=== PATIENT | male | born 1940 | race Caucasian/White ===

== ENCOUNTER 2017-03-10 16:27 | Observation (INO) ==
[2017-03-10] MEDS ORDERED: NITROGLYCERIN 2% OINT 1 INCH/GM PACK TOP STA (16:53)
[2017-03-10] MEDS ORDERED: NITROGLYCERIN SL 0.4 MG TABLET SL PRN ×2 (16:53→21:07)
[2017-03-10] MEDS ORDERED: METOPROLOL TARTRATE 5 MG/5 ML VIAL IV STA (16:53)
[2017-03-10] MEDS ORDERED: ENOXAPARIN 100 MG/ML SYRINGE SUBCUT STA (16:53)
--- NOTE | 2017-03-10 16:57 | EKG Report ---
Stationary ECG Study [facility] ER Test Date: 03/10/2017 4:45:16 PM Pat Name: NELIDA KYLE Department: Room: Gender: M Admitting Clerk: : 1940 Requested by: Wilmar Kennedy Order Number: [id number] Reading MD: ELIDA PRATER Intervals [place] Rate: 66 P: 37 TX: 169 QRS: 56 QRSD: 109 T: 48 QT: 456 QTc: 470 Interpretive Statements SINUS RHYTHM Electronically Signed On 03-11-17 16:58:15 CDT by ELIDA PRATER [email or web address]
[2017-03-10] MEDS ORDERED: ENOXAPARIN 100 MG/ML SYRINGE SUBCUT ONE (17:19)
[2017-03-10] MEDS ORDERED: METOPROLOL TARTRATE 5 MG/5 ML VIAL IV ONE (17:19)
[2017-03-10] MEDS ORDERED: NITROGLYCERIN 2% OINT 1 INCH/GM PACK TOP ONE (17:19)
[2017-03-10 17:27] LABS: Basophils % 0.3 % (0.0-0.8); Eosinophils # 0.3 10*3/uL (0.0-0.87); Eosinophils % 3.9 % (0.00-10.9); Hematocrit 39.8 VOL% (42.0-52.0); Hemoglobin 13.3 GM/DL (14.0-18.0); Immature Granulocytes % 0.5 %; Immature Granulocytes Absolute 0.03 #; Lymphocytes # 1.7 10*3/uL (1.4-4.0); Lymphocytes % 26.5 % (21.2-54.2); Mean Corpuscular HGB Conc 33.4 GM/DL (32-36); Mean Corpuscular Hemoglobin 33 PG (27-34); Mean Corpuscular Volume 97.5 FL (87-102); Mean Platelet Volume 9.6 FL (9.6-12.0); Monocytes # 0.6 10*3/uL (0.11-0.8); Monocytes % 9.1 % (1.7-12.7); Neutrophils # 3.8 10*3/uL (1.4-7.4); Neutrophils % 59.7 % (38.7-73.9); Platelet Count 185 T/CUMM (130-400); Red Blood Count 4.08 MC/CUMM (3.8-5.5); Red Cell Distribution Width 11.8 % (9.3-17.3); White Blood Count 6.3 T/CUMM (4-12)
--- NOTE | 2017-03-10 17:36 | EKG Report ---
Stationary ECG Study [facility] ER Test Date: 03/10/2017 5:35:03 PM Pat Name: NELIDA KYLE Department: Room: 122 Gender: M Box Attacher: : 1940 Requested by: Wilmar Kennedy Order Number: [id number] Reading MD: ELIDA PRATER Intervals [place] Rate: 65 P: 33 NE: 169 QRS: 8 QRSD: 109 T: 22 QT: 460 QTc: 471 Interpretive Statements SINUS RHYTHM Electronically Signed On 03-11-17 16:59:17 CDT by ELIDA PRATER [email or web address]
[2017-03-10 17:41] LABS: Calcium 8.8 MG/DL (8.5-10.1); Magnesium 2.1 MG/DL (1.8-2.4); Osmolality,Calculated 280.4 MOS/KG (273-304); Potassium 4.2 MMOL/L (3.5-5.1)
--- NOTE | 2017-03-10 17:42 | XRay Report ---
XR chest 1V portable Indication: Chest pain. Chest one view: Comparison 02/11/2017. Increased reticular prominence of the lungs noted diffusely, with increased definition of the right minor fissure, all of which is suggestive of mild pulmonary edema. Central pulmonary arteries are slightly more pronounced as well. Heart size remains within normal limits. No focal infiltrate identified. Impression: Mild fluid overload. PROCEDURE INTERPRETED AT [facility] DEPARTMENT OF RADIOLOGY Final Report Signed by: Devante Lyles M.D.
[2017-03-10] MEDS ORDERED: ALUM/MAG/SIMETH/LIDO VISC 1:1 30 ML BOTTLE PO STA (18:08)
[2017-03-10] MEDS ORDERED: ALUM/MAG/SIMETH/LIDO VISC 1:1 30 ML BOTTLE PO ONE (18:11)
[2017-03-10] MEDS ORDERED: MORPHINE 2 MG/1 ML SYRINGE ONE (19:20)
[2017-03-10] MEDS ORDERED: ONDANSETRON 4 MG/2 ML VIAL ONE (19:20)
[2017-03-10] MEDS ORDERED: MORPHINE 2 MG/1 ML SYRINGE IV STA (19:20)
[2017-03-10] MEDS ORDERED: ONDANSETRON 4 MG/2 ML VIAL IV STA (19:20)
[2017-03-10] MEDS ORDERED: MORPHINE 2 MG/1 ML SYRINGE IV PRN (19:23)
[2017-03-10] MEDS ORDERED: POTASSIUM CHLORIDE 20 MEQ TABLET PO PRN (19:23)
[2017-03-10] MEDS ORDERED: MAGNESIUM SULF RIDER 4 GM in PREMIX 1 EACH IV PRN (19:23)
[2017-03-10] MEDS ORDERED: MAGNESIUM SULF RIDER 2 GM in PREMIX 1 EACH IV PRN (19:23)
--- NOTE | 2017-03-10 19:23 | Emergency Department Note ---
Praful Ayon Brittany, am scribing for, and in the presence of, Cristian Smith MD 16:56. Luis Ayon Doug C, MD, personally performed the services described in this documentation, ascribed by Shantell Basilio in my presence, and it is both accurate and complete 922 . Arrival - Arrival Chief Complaint: Chest Pain Stated Complaint: chest pains and pain down both arms ED Nursing Triage Note: chest pain, +nausea,+sob,-diaphoresis, numerous stents and mi's in past, +dizziness Mode of Arrival: Wheelchair Limitations: No Limitations Source: Patient, RN Notes Reviewed Time Seen by Provider: 03/10/17 16:53 - History of Present Illness HPI Narrative: Patient 76-year-old white male presents emergency room complaining of substernal chest pain. Patient states this been basically going off and on all day. Patient states hitting this morning and lasted about 30 minutes before it subsided. He states the pain was a dull ache across his chest and radiated to both arms. He had no nausea, vomiting or diaphoresis. Patient states pain hit him again after lunch and it was as severe or more so and persistent. He took 2 nitroglycerin and had almost complete relief but his pain never subsided. Patient complains of persistent substernal chest pain and is still radiating to both arms. He feels a little short of breath now but still has no nausea, vomiting or diaphoresis. He does have a history of coronary artery disease and has had multiple stents in the past. Patient states Dr. Espinosa is his sap basis administrator but recently saw sap basis administrator in [place], a Dr. Ryder, who did not see any need for any further intervention at this time. Patient states on a scale of 1-10 his present pain is a 5. Onset (ago): hour(s) (9) Consistency: intermittent Severity: severe Severity scale (1-10): 9 (9/10 at worst, 5/10 as of now) Quality: other ("hard" per pt) Allergies/Adverse Reactions: Allergies Allergy/AdvReac Type Severity Reaction Status Date / Time No Known Allergies Allergy Verified 03/10/17 16:48 Home Medications: Home Medications Medication Instructions Recorded Confirmed Type Aspirin [Ecotrin] 81 mg PO QAM 10/02/15 03/10/17 History Lisinopril 2.5 mg PO QAM 10/02/15 03/10/17 History Sertraline [Zoloft] 50 mg PO PC SUPPER 10/02/15 03/10/17 History Metoprolol Tartrate Tab [Lopressor 12.5 mg PO BID #30 tablet 10/12/15 03/10/17 Rx Tab] Nitroglycerin Sl Tab [Nitrostat] 0.4 mg SL Q5M PRN #25 tablet 10/12/15 03/10/17 Rx Ranolazine [Ranexa] 1,000 mg PO BID #60 tablet 01/06/16 03/10/17 Rx Cetirizine Tab [ZyrTEC Tab] 10 mg PO PC SUPPER 03/03/16 03/10/17 History Pantoprazole Tab [Protonix Tab] 40 mg PO BID 03/03/16 03/10/17 History Isosorbide Mononitrate [Imdur] 60 mg PO QAM 07/17/16 03/10/17 History Atorvastatin [Lipitor] 80 mg PO BEDTIME 01/06/17 03/10/17 History Clopidogrel [Plavix] 75 mg PO QAM 03/10/17 03/10/17 History Simethicone Chew Tab [Mylanta Gas 125 mg PO PC PRN 03/10/17 03/10/17 History Max Str] Review of System - Review of System 12 point system: reviewed and no additional remarkable complaints except as stated - Review of System Constitutional: Present: weakness. Absent: chills, diaphoresis, fever Eyes: Absent: vision change Head/Ears/Nose/Throat: Absent: nasal drainage, sore throat Respiratory: Absent: respiratory distress Cardiovascular: Present: chest pain Gastrointestinal: Present: nausea. Absent: abdominal pain, vomiting, diarrhea, constipation Genitourinary male: Absent: urgency, dysuria, frequency Musculoskeletal: Present: arm pain (bilateral). Absent: back pain, leg pain, neck pain Skin: Absent: rash Neurological: Present: vertigo Psychiatric: Absent: anxiety, depression Hematological/Lymphatic: Absent: easy bleeding, easy bruising Medical,Surgical,& Family Hx - Medical History Cardio: History of: CAD (3.0 x 18 mm Xience exp. In left circumflex and 2.25 x 28 Xience exp 06/13), Hypertension, [place], Cardiovascular Problems Psychological: History of: Depression Neurology: No history of: Brain Aneurysm, Seizures HEENT: History of: Ear Problem (Hearing Aids), Eye Problem (Glasses), Dental Problems (Partial upper Dentures), HEENT Problems (vertigo) Endocrine: No history of: Diabetes Mellitus (IDDM), Diabetes Mellitus (NIDDM), Thyroid Disorder Respiratory: No history of: Obstructive Sleep Apnea Genitourinary: History of: Kidney Stones Gastrointestinal: History of: GERD Musculoskeletal: History of: Musculoskeletal Problems (arthritis) No history of: Amputation - Surgical History Cardiac Surgeries: Sugical HX of: Cardiac Catheterization (stents in 2017) Thoracic Surgeries: Patient denies;: Lobectomy Neurologic Surgeries: Patient denies: Brain Aneurysm, Neurologic Surgery HEENT Surgeries: Patient denies: Eye Surgery, Thyroid Surgery, Tonsilectomy & Adenoidectomy Abdominal Surgeries: Surgical HX of: Abdominal Surgery, Cholecystectomy, Colonoscopy, EGD, Hernia Repair Patient denies: Appendectomy Reproductive Surgeries: Patient denies;: Genitourinary Surgery Orthopedic Surgeries: Patient denies;: Implanted Devices, Orthopedic Surgery, Spinal Surgery, Total Hip Replacement, Total Knee Replacement - Family History Family History: Reports;: Family Cancer (BROTHERS AND SISTER), Family Diabetes ( MOTHER), Family Heart Disease (BROTHERS AND SISTER) - Social History Smoking Status: Former smoker Exam Vital Signs: Vital Signs Temperature 98.2 F 03/10/17 17:39 Pulse Rate 67 03/10/17 17:39 Respiratory Rate 18 03/10/17 17:39 Blood Pressure 134/76 03/10/17 17:39 O2 Sat by Pulse Oximetry 98 03/10/17 16:43 - General General appearance: alert, in no apparent distress - Head Head exam: Present: atraumatic, normocephalic, normal inspection - Eye Eye exam: Present: normal appearance, PERRL, EOMI - ENT ENT exam: Present: normal exam, normal oropharynx, mucous membranes moist - Neck Neck exam: Present: normal inspection, full ROM, trachea midline - Chest Chest inspection: Present: normal inspection, symmetric chest wall rise. Absent : tenderness (no chest wall tenderness on exam) - Respiratory Respiratory exam: Present: normal lung sounds bilaterally. Absent: rales, rhonchi, wheezes - Cardiovascular Cardiovascular exam: Present: regular rate, normal rhythm, normal heart sounds. Absent: murmur, rubs, gallop - Abdominal Exam Abdominal exam: Present: soft, normal bowel sounds. Absent: distention, tenderness - Extremities Exam Extremities exam: Present: normal inspection - Back Exam Back exam: Present: normal inspection - Neurological Exam Neurological exam: Present: alert, oriented X3, CN II-XII intact. Absent: motor sensory deficit - Psychiatric Psychiatric exam: Present: normal affect - Skin Skin exam: Present: warm, dry Course Course Narrative: Patient's pain continued to wax and wane here in the emergency room. He got some relief with nitroglycerin but he seemed to get more relief with a GI cocktail. His pain however returned. His repeat EKG showed no changes from the initial EKG and his cardiac isoenzymes were negative. Because of his history I thought best for him to be admitted for observation and serial cardiac isoenzymes. I discussed the patient's clinical presentation, laboratory and radiographic findings with Dr. Pelaez and he asked the patient be admitted to a telemetry bed. Results - Labs CBC & BMP: 03/10/17 16:24 03/10/17 16:24 Lab Results: I have reviewed the patients labs Labs: Laboratory Tests 03/10/17 16:24 WBC 6.3 RBC 4.08 Hgb 13.3 L Hct 39.8 L MCV 97.5 MCH 33 MCHC 33.4 RDW 11.8 Plt Count 185 MPV 9.6 Neut % (Auto) 59.7 Lymph % (Auto) 26.5 Mcleod % (Auto) 9.1 Eos % (Auto) 3.9 Baso % (Auto) 0.3 Neut # (Auto) 3.8 Lymph # (Auto) 1.7 Mcleod # (Auto) 0.6 Eos # (Auto) 0.3 Baso # (Auto) 0.0 Immature Gran % 0.5 Nucleated RBC % 0.0 Immature Gran # 0.03 Nucleated RBCs # 0.00 Laboratory Tests 03/10/17 03/10/17 16:24 16:24 Sodium 140 Potassium 4.2 Chloride 106 Carbon Dioxide 28 Anion Gap 10.2 BUN 17 Creatinine 1.20 GFR Calculation 69 BUN/Creatinine Ratio 14.00 Glucose 99 Calculated Osmolality 280.4 Calcium 8.8 Magnesium 2.1 Troponin I < 0.015 - Diagnostic Findings Procedure: Chest x-ray: report reviewed by me (Mild fluid overload.) Disposition Clinical Impression: Chest pain, History of coronary artery disease Case discussed with: patient Disposition: Still a Patient Condition: Guarded Time of Disposition: 19:22
[2017-03-10] MEDS ORDERED: SIMETHICONE CHEW 125 MG TABLET PO PRN (21:07)
[2017-03-10] MEDS ORDERED: ATORVASTATIN 80 MG TABLET PO SCH (21:07)
[2017-03-10] MEDS: PANTOPRAZOLE 40 MG TABLET PO SCH (22:33)
[2017-03-10] MEDS: RANOLAZINE 500 MG TABLET PO SCH (22:33)
[2017-03-10] MEDS: ONDANSETRON 4 MG/2 ML VIAL IV PRN (22:33)
[2017-03-10] MEDS: METOPROLOL TARTRATE 25 MG TABLET PO SCH (22:39)
[2017-03-10] MEDS: SODIUM CHLORIDE 0.45% 1,000 ML IV SCH (22:40)
--- NOTE | 2017-03-10 23:03 | EKG Report ---
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
[2017-03-11] MEDS ORDERED: MORPHINE 2 MG/1 ML SYRINGE IV PRN (00:30)
[2017-03-11] MEDS ORDERED: NITROGLYCERIN DRIP 50 MG/250 ML BOTTLE IV SCH (00:30)
[2017-03-11] MEDS ORDERED: NITROGLYCERIN DRIP 50 MG/250 ML BOTTLE IV ONE (00:39)
[2017-03-11] MEDS: ONDANSETRON 4 MG/2 ML VIAL IV PRN ×3 (03:01→15:04)
[2017-03-11 05:13] LABS: Albumin 3.6 G/DL (3.4-5.0); Bilirubin,Direct 0.2 MG/DL (0.0-0.20); Bilirubin,Indirect 0.9 MG/DL (0.0-1.0); Bilirubin,Total 1.1 MG/DL (0.2-1.0); Total Protein 5.5 G/DL (6.4-8.3)
[2017-03-11 05:16] LABS: Calcium 8.7 MG/DL (8.5-10.1); Osmolality,Calculated 281.3 MOS/KG (273-304)
--- NOTE | 2017-03-11 06:56 | EKG Report ---
Stationary ECG Study [facility] Test Date: 03/11/2017 1:46:58 AM Pat Name: NELIDA KYLE Department: Room: 122 Gender: M Plush Dresser: : 1940 Requested by: Wilmar Kennedy Order Number: [id number] Jessica MD: ELIDA PRATER Intervals [place] Rate: 57 P: 36 NE: 141 QRS: 62 QRSD: 109 T: 31 QT: 485 QTc: 480 Interpretive Statements SINUS RHYTHM Electronically Signed On 03-11-17 17:02:05 CDT by ELIDA PRATER [id number]
--- NOTE | 2017-03-11 08:22 | Cardiology History & Physical ---
<Mercedez Prado - Last Filed: 03/11/17 08:00> Assessment and Plan - Time spent with patient Time spent with patient: Greater than 30 minutes (1) Chest pain Status: Acute Assessment and plan: Patient has atypical symptoms of chest pain. The syncope worsened with laying down and better with sitting up. However patient also has long-standing history of CAD. We will order stress test this morning to rule out worsening of underlying coronary artery disease. Current Visit: Yes (2) History of coronary artery disease Status: Chronic Assessment and plan: Patient's most recent heart catheterization was January 2017. At that time, he had successful percutaneous intervention of the left anterior descending coronary artery with drug-eluting stents in the proximal and mid vessel. Current Visit: Yes (3) Dyslipidemia Status: Chronic Assessment and plan: Continue current plan of care with lipid lowering agent. I will order a lipid panel. Current Visit: No (4) GERD (gastroesophageal reflux disease) Status: Chronic Assessment and plan: Continue PPI twice daily. Current Visit: No (5) Hypertension Status: Chronic Assessment and plan: This is currently well controlled. Will continue current plan of care. Current Visit: Yes (6) Erosive esophagitis Status: Acute Current Visit: Yes History of Present Illness Chief complaint: Chest pain History of present illness: Concert Singer: Dr. Rivas PCP: Yamileth Singer Cardiology H&P note: Mr. Galo is a 76 year old male with known history of coronary artery disease , routinely followed by Dr. Rivas. Patient presented to the ER yesterday with complaints of chest pain. Patient has cardiac risk factors significant for known history of coronary artery disease, dyslipidemia, hypertension, advanced age, family history of coronary artery disease, sedentary lifestyle and former smoker (quit in 1968). Patient has past medical history of erosive esophagitis , GERD and myocardial infarction. Patient was hospitalized January 2017 and underwent cardiac catheterization January 06, 2017. He is status post successful percutaneous intervention of the left anterior descending coronary artery with drug-eluting stents in the proximal and mid vessel. Circumflex stent was widely patent at that time. Right coronary artery was chronically occluded. He had an echocardiogram January 2017 which revealed and ejection fraction of 55-60%. Dr. Ryder, a radio control crane operator in [facility] reviewed his cardiac catheterization films last week. He tells me that he received a phone call from Dr. Ryder Saturday. He told him at that time that he did not see any need for further intervention at this point and time. Patient was in his usual state of health until yesterday morning when he began feeling dizzy and nauseated while getting ready for Saturday school. While at Saturday school, this continued to worsen. He then decided that it was best to go home and not attend oriental orthodox service. After he arrived home, he tells me that he fixed himself a salad. Apparently 30 minutes later he began experiencing left sided chest pain while sitting in his chair. He tells me that this radiated to his left lower rib cage. He describes this as an tightening/ squeezing pain. This was not worsened with exertion. He tells me that laying down made it worse and sitting up made this better. This is associated with slight shortness of breath and nausea. He denies diaphoresis and vomiting. He took 2 nitroglycerin, this helped his pain. However it was not completely resolved. He then took 2 Gas-X. This also seemed to help his pain, but did not completely resolve it. A couple hours later, his chest pain became more severe and began to radiate down both arms. At that time, he and his decided it was best to come to the ER for further evaluation. Upon arrival to the ER he continued to experience chest pain. He tells me that it was ongoing until he received morphine. Of note, patient tells me that him and his worked in the yard strenuously Saturday and Saturday. Upon exam, his left chest was slightly tender to palpation. However, he tells me that this was not the same pain that he was experiencing. Patient was seen and examined in the CCU. He tells me that he is now chest pain -free. His EKG does not reveal any acute changes from previous EKGs. Troponin has been negative 3. Patient tells me that he has been extremely compliant with his dual antiplatelet therapy. Echocardiogram was ordered in the emergency room. This will be reviewed. I will further discuss this with Dr. alford. Further plan and addendum to follow. Home Medications Medication Instructions Recorded Confirmed Type Aspirin [Ecotrin] 81 mg PO QAM 10/02/15 03/10/17 History Lisinopril 2.5 mg PO QAM 10/02/15 03/10/17 History Sertraline [Zoloft] 50 mg PO PC SUPPER 10/02/15 03/10/17 History Metoprolol Tartrate Tab [Lopressor 12.5 mg PO BID #30 tablet 10/12/15 03/10/17 Rx Tab] Nitroglycerin Sl Tab [Nitrostat] 0.4 mg SL Q5M PRN #25 tablet 10/12/15 03/10/17 Rx Ranolazine [Ranexa] 1,000 mg PO BID #60 tablet 01/06/16 03/10/17 Rx Cetirizine Tab [ZyrTEC Tab] 10 mg PO PC SUPPER 03/03/16 03/10/17 History Pantoprazole Tab [Protonix Tab] 40 mg PO BID 03/03/16 03/10/17 History Isosorbide Mononitrate [Imdur] 60 mg PO QAM 07/17/16 03/10/17 History Atorvastatin [Lipitor] 80 mg PO BEDTIME 01/06/17 03/10/17 History Clopidogrel [Plavix] 75 mg PO QAM 03/10/17 03/10/17 History Simethicone Chew Tab [Mylanta Gas 125 mg PO PC PRN 03/10/17 03/10/17 History Max Str] Allergies Allergy/AdvReac Type Severity Reaction Status Date / Time No Known Allergies Allergy Verified 03/10/17 16:48 - Constitutional Constitutional: Present: as per HPI, fatigue. Absent: chills, fever(s), frequent falls, headache(s), weakness, weight gain, weight loss - Cardiovascular Cardiovascular: Present: as per HPI, chest pain at rest, dyspnea, radiating jaw , neck or arm pain, lightheadedness. Absent: claudication, diaphoresis, edema, orthopnea, palpitations, PND - Respiratory Respiratory: Present: dyspnea. Absent: cough, wheezing, snoring, pain on inspiration, change in phlegm color - Gastrointestinal Gastrointestinal: Present: dyspepsia, heartburn, nausea. Absent: abdominal pain , bloating, change in bowel habits, coffee ground emesis, constipation, cramping , diarrhea, hematemesis, hematochezia, loose stools, melena, vomiting - Neurological Neurological: Present: dizziness. Absent: abnormal gait, abnormal speech, frequent falls, headache(s), numbness, paresthesias, syncope - Hematologic/Lymphatic Hematologic/Lymphatic: Absent: easy bleeding, easy bruising, lymphadenopathy Medical,Surgical,& Family Hx - Medical History Cardio: History of: CAD, Hypertension, [place], Cardiovascular Problems Psychological: History of: Depression HEENT: History of: Ear Problem (Hearing Aids), Eye Problem (Glasses), Dental Problems (Partial upper Dentures), HEENT Problems (vertigo) Endocrine: History of: Dyslipidemia No history of: Diabetes Mellitus (NIDDM), Thyroid Disorder Respiratory: No history of: Obstructive Sleep Apnea Genitourinary: History of: Kidney Stones Gastrointestinal: History of: GERD, GI Problems (Erosive esophagitis) Musculoskeletal: History of: Musculoskeletal Problems (arthritis) - Surgical History Cardiac Surgeries: Sugical HX of: Cardiac Catheterization (stents in 2017) Patient Denies: Cardiac Surgery, Internal Defibrillator, Vascular Access Devices Thoracic Surgeries: Patient denies;: Lobectomy Abdominal Surgeries: Surgical HX of: Abdominal Surgery, Cholecystectomy, Colonoscopy, EGD, Hernia Repair - Family History Family History: Reports;: Family Cancer (BROTHERS AND SISTER), Family Diabetes ( MOTHER), Family Heart Disease (BROTHERS AND SISTER) - Social History Smoking Status: Former smoker Frequency of Alcohol Use: None Type of Drug Use: None Cardiology Physical Exam - Constitutional Vitals: Vital Signs Temp Pulse Resp BP Pulse Ox 98.1 F 58 L 17 100/60 96 03/11/17 04:00 03/11/17 06:45 03/11/17 06:45 03/11/17 06:45 03/11/17 06:45 Intake and Output 03/10/17 03/11/17 03/11/17 22:59 06:59 14:59 Intake Total 220 / 220 Output Total 400 / 400 Balance -180 / -180 Intake: IV Nitroglycerin Drip 50 mg/ 250 ml50 mg In 250 ml @ 5 MCG/MIN 1.5 mls/hr IV TITRATE ROMARIO Rx#: [id number] Oral 220 / 220 Output: Urine 400 / 400 Other: Voiding Method Urinal # Voids 0 Weight 192 lb 192 lb General appearance: normal weight, no acute distress - Head Head exam: Present: normal inspection, normocephalic, atraumatic - Neck Neck exam: Present: normal inspection. Absent: lymphadenopathy, tenderness, thyromegaly - Respiratory Respiratory exam: Present: clear to auscultation bilaterally, chest wall tenderness. Absent: accessory muscle use, rales, rhonchi, stridor, wheezes - Cardiovascular Cardiovascular exam: Present: regular rate and rhythm. Absent: bradycardia, carotid bruit, gallop, rubs, systolic murmur - GI/Abdominal GI/Abdominal exam: Present: normal bowel sounds, soft. Absent: distended, firm , tenderness - Extremities Exam Extremities exam: Present: normal inspection, normal capillary refill, other ( Normal upper and lower extremity pulses.). Absent: calf tenderness, edema - Neurological Exam Neurological exam: Present: alert, oriented X3 - Psychiatric Psychiatric exam: Present: normal affect, normal mood. Absent: agitated, anxious, depressed - Skin Skin exam: Present: normal color, warm, dry. Absent: cyanosis, diaphoretic, erythema Result/EKG - Labs CBC & BMP: 03/10/17 16:24 03/11/17 03:52 Lab Results: I have reviewed the past 24 hour labs Labs: Laboratory Results - last 24 hr 03/10/17 03/10/17 03/11/17 20:49 22:23 03:52 Sodium Potassium Chloride Carbon Dioxide Anion Gap BUN Creatinine GFR Calculation BUN/Creatinine Ratio Glucose Calculated Osmolality Calcium Total Bilirubin Direct Bilirubin Indirect Bilirubin AST ALT Alkaline Phosphatase Troponin I < 0.015 < 0.015 < 0.015 Total Protein Albumin Lipase 03/11/17 03/11/17 03:52 03:52 Sodium 141 Potassium 4.0 Chloride 106 Carbon Dioxide 26 Anion Gap 13.0 BUN 16 Creatinine 0.80 GFR Calculation 103 BUN/Creatinine Ratio 20.00 Glucose 92 Calculated Osmolality 281.3 Calcium 8.7 Total Bilirubin 1.10 H Direct Bilirubin 0.20 Indirect Bilirubin 0.9 AST 14 ALT 15 L Alkaline Phosphatase 67 Troponin I Total Protein 5.5 L Albumin 3.6 Lipase 113.0 Quality Measures - Stroke Symptom Onset Unknown: No <Irvin Melissa - Last Filed: 03/11/17 09:06> History of Present Illness History of present illness: Cardiology addendum Patient examined and chart reviewed. Status post proximal and distal LAD stent January 06, [address] Espinosa. The circumflex stent site was widely patent and the right coronary is chronically occluded. Ejection fraction 55-6% by recent echo. Patient had recurrent chest pain. This is most likely reflux disease. He has known chronic GE reflux and a history of erosive esophagitis he does not practice good reflux precautions and is not that careful about what he eats. Troponin negative 3. EKG shows sinus rhythm ST-T wave changes only exam is normal. No murmur or gallop and no chest wall tenderness to palpation. Impression Atypical chest pain Plan Exercise cardiac stress test today. Home if negative Routine GE with precautions reviewed Cardiology Physical Exam - Constitutional Vitals: Vital Signs Temp Pulse Resp BP Pulse Ox 98.1 F 58 L 17 100/60 96 03/11/17 04:00 03/11/17 06:45 03/11/17 06:45 03/11/17 06:45 03/11/17 06:45 Intake and Output 03/10/17 03/11/17 03/11/17 23:59 07:59 15:59 Intake Total 220 / 220 Output Total 400 / 400 Balance -180 / -180 Intake: IV Nitroglycerin Drip 50 mg/ 250 ml50 mg In 250 ml @ 5 MCG/MIN 1.5 mls/hr IV TITRATE ROMARIO Rx#: [id number] Oral 220 / 220 Output: Urine 400 / 400 Other: Voiding Method Urinal # Voids 0 Weight 87.09 kg 87.09 kg Patient Weight 03/11/17 23:59 Weight 87.09 kg Result/EKG - Labs CBC & BMP: 03/10/17 16:24 03/11/17 03:52 Labs: Laboratory Results - last 24 hr 03/10/17 03/10/17 03/11/17 20:49 22:23 03:52 Sodium Potassium Chloride Carbon Dioxide Anion Gap BUN Creatinine GFR Calculation BUN/Creatinine Ratio Glucose Calculated Osmolality Calcium Total Bilirubin Direct Bilirubin Indirect Bilirubin AST ALT Alkaline Phosphatase Troponin I < 0.015 < 0.015 < 0.015 B-Natriuretic Peptide Total Protein Albumin Lipase 03/11/17 03/11/17 03/11/17 03:52 03:52 03:52 Sodium 141 Potassium 4.0 Chloride 106 Carbon Dioxide 26 Anion Gap 13.0 BUN 16 Creatinine 0.80 GFR Calculation 103 BUN/Creatinine Ratio 20.00 Glucose 92 Calculated Osmolality 281.3 Calcium 8.7 Total Bilirubin 1.10 H Direct Bilirubin 0.20 Indirect Bilirubin 0.9 AST 14 ALT 15 L Alkaline Phosphatase 67 Troponin I B-Natriuretic Peptide 88 Total Protein 5.5 L Albumin 3.6 Lipase 113.0
[2017-03-11] MEDS ORDERED: ASPIRIN EC 81 MG TABLET PO SCH (09:00)
[2017-03-11] MEDS ORDERED: LISINOPRIL 5 MG TABLET PO SCH (09:00)
[2017-03-11] MEDS ORDERED: ISOSORBIDE MONONITRATE 60 MG TABLET PO SCH (09:00)
[2017-03-11] MEDS ORDERED: PANTOPRAZOLE 40 MG TABLET PO SCH (09:00)
[2017-03-11] MEDS ORDERED: CLOPIDOGREL 75 MG TABLET PO SCH (09:00)
[2017-03-11 09:04] LABS: Risk Ratio 2.84; VLDL CHOLESTEROL 27.6 MG/DL
[2017-03-11] MEDS: SODIUM CHLORIDE 0.45% 1,000 ML IV SCH (10:16)
[2017-03-11] MEDS: METOPROLOL TARTRATE 25 MG TABLET PO SCH (12:35)
[2017-03-11] MEDS: PANTOPRAZOLE 40 MG TABLET PO SCH (12:37)
[2017-03-11] MEDS: RANOLAZINE 500 MG TABLET PO SCH (12:37)
[2017-03-11] MEDS ORDERED: REGADENOSON 0.4 MG/5 ML SYRINGE IV ONE (13:53)
--- NOTE | 2017-03-11 15:46 | ECHO Report ---
Griffin Galo Exam Date: 03/11/2017 07:28 Referring Physician: Technologist: Ronel Salter RDCS Age: 76 Ht (in): 69 Wt (lb): 192 Gender: M Exam Location: [facility] Echo Indications: Chest pain, unspecified, CAD with previous stent, Dyslipidemia, Essential (primary) hypertension, GERD, Dizziness and giddiness BP: 99 / 58 HR: 61 Rhythm: Sinus Technical Quality: Fair IMPRESSIONS Left ventricular ejection fraction is estimated at 65 %. Grade I/IV diastolic dysfunction (abnormal relaxation filling pattern), normal to mildly elevated filling pressures. The right ventricle is normal in size and function. Normal right atrial size. The left atrium is mildly enlarged. Morphologically normal mitral valve. Trace mitral valve regurgitation. Aortic valve sclerosis. No aortic valve regurgitation. Mild tricuspid valve regurgitation. PAP 35-40 mmHG. No pulmonary valve regurgitation. Normal pericardium without effusion. Normal ascending aorta dimension. MEASUREMENTS (Male / Female) Normal Values 2D ECHO LV Diastolic Diameter PLAX 3.7 cm 4.2 - 5.9 / 3.9 - 5.3 cm LV Systolic Diameter PLAX 1.9 cm LV Fractional Shortening PLAX 49.7 % IVS Diastolic Thickness 1.0 cm 0.6 - 1.0 / 0.6 - 0.9 cm LVPW Diastolic Thickness 1.1 cm 0.6 - 1.0 / 0.6 - 0.9 cm RV Internal Dim ED PLAX 2.7 cm Aortic Root Diameter 3.3 cm LA Systolic Diameter LX 3.9 cm 3.0 - 4.0 / 2.7 - 3.8 cm DOPPLER TR Peak Velocity 258.0 cm/s TR Peak Gradient 26.6 mmHg FINDINGS Left Ventricle Grade I/IV diastolic dysfunction (abnormal relaxation filling pattern), normal to mildly elevated filling pressures. Normal left ventricular cavity size. Normal left ventricular wall thickness. Left ventricular ejection fraction is estimated at 65 %. Right Ventricle The right ventricle is normal in size and function. Right Atrium Normal right atrial size. Left Atrium The left atrium is mildly enlarged. Mitral Valve Morphologically normal mitral valve. Trace mitral valve regurgitation. Aortic Valve Aortic valve sclerosis. No aortic valve regurgitation. Tricuspid Valve Morphologically normal tricuspid valve. Mild tricuspid valve regurgitation. PAP 35-40 mmHG. Pulmonic Valve Pulmonic valve not well visualized. No pulmonary valve regurgitation. Pericardium Normal pericardium without effusion. Aorta Normal ascending aorta dimension. Pierre Belén (Electronically Signed) Final Date: 11 March 2017 15:45
--- NOTE | 2017-03-11 16:39 | Discharge Summary ---
<Leonarda Freire - Last Filed: 03/11/17 16:24> Hospital Course - Hospital Course Hospital Course: CODING SPECIALIST HOME HEALTH: DR. REYNA PCP: GIULIANO SINGER Mr. Galo is a 76 year old male with known history of coronary artery disease , routinely followed by Dr. Reyna. Patient presented to the ER yesterday with complaints of chest pain. Symptoms of chest pain were atypical. Mr. Galo had 3 sets of negative troponins. Echocardiogram today revealed EF 65%, grade 1 4 diastolic dysfunction, trace MR, mild TR. He underwent nuclear stress testing today which was low risk for ischemia. This was postponed until this afternoon due to nausea earlier in the day. He also had an episode of nausea following stress testing for which he was given Zofran. He reports he is now feeling much better and is ready to go home. His blood pressure has been well controlled. He has been normal sinus rhythm with rates in the 70s. Patient was hospitalized January 2017 and underwent cardiac catheterization January 06, 2017. He is status post successful percutaneous intervention of the left anterior descending coronary artery with drug-eluting stents in the proximal and mid vessel. Circumflex stent was widely patent at that time. Right coronary artery was chronically occluded. Dr. Ryder, a non emergency services ambulance driver in [facility] reviewed his cardiac catheterization films last week. He tells me that he received a phone call from Dr. Ryder Saturday. He told him at that time that he did not see any need for further intervention at this point and time. Reflux precautions were discussed with the patient. He has previously seen Dr. Liu and we will make him a follow-up appointment to see him within the next 3 -4 weeks. He will be discharged home today and we will also get him back into see Dr. Reyna within the next 2-3 weeks. - Time spent with patient Time with patient DS: Less than 30 minutes Diagnosis - Discharge Diagnosis (1) Atypical chest pain Status: Acute (2) Erosive esophagitis Status: Chronic (3) History of coronary artery disease Status: Chronic (4) Hypertension Status: Chronic (5) Dyslipidemia Status: Chronic (6) GERD (gastroesophageal reflux disease) Status: Chronic Specialty Discharge - Follow Up or Referrals Follow up with: Irvin Liu MD [Physician] - (Follow up with Dr. Liu within 3-4 weeks, or next available appointment. ) Lela Reyna DO [Physician] - 2 Weeks (Follow up with Dr. Reyna within 2-3 weeks. ) Discharge Plan - Discharge Data Disposition: Disch To Home/Self Care Condition at Discharge: Stable Discharge Diet: heart healthy Activity: resume usual activities as tolerated Hygiene: no restrictions Weight Bearing at Discharge: full weight bearing Contact your physician if you experience:: fever over 101, Difficulty voiding, Redness or swelling, Nausea/Vomiting, Shortness of breath, Bleeding, pain uncontrolled by pain medications - Discharge Medications Continue Sertraline [Zoloft] 50 mg PO PC SUPPER Lisinopril 2.5 mg PO QAM Aspirin [Ecotrin] 81 mg PO QAM Metoprolol Tartrate Tab [Lopressor Tab] 12.5 mg PO BID #30 tablet Nitroglycerin Sl Tab [Nitrostat] 0.4 mg SL Q5M PRN #25 tablet PRN Reason: Chest Pain Ranolazine [Ranexa] 1,000 mg PO BID #60 tablet Pantoprazole Tab [Protonix Tab] 40 mg PO BID Cetirizine Tab [ZyrTEC Tab] 10 mg PO PC SUPPER Isosorbide Mononitrate [Imdur] 60 mg PO QAM Atorvastatin [Lipitor] 80 mg PO BEDTIME Simethicone Chew Tab [Mylanta Gas Max Str] 125 mg PO PC PRN PRN Reason: Indigestion Clopidogrel [Plavix] 75 mg PO QAM - Follow Up or Referral Follow Up: Lela Reyna DO [Physician] - 2 Weeks (Follow up with Dr. Reyna within 2-3 weeks. ) Irvin Liu MD [Physician] - (Follow up with Dr. Liu within 3-4 weeks, or next available appointment. ) - Forms/Instructions Instructions: Coronary Artery Disease (DC), Chest Pain (DC), Chronic Hypertension (DC), Corrosive Esophagitis (DC) Exam - Constitutional Vitals: Period Temp Pulse Resp BP Sys/Seymour Pulse Ox Last 24 Hr 97.8 F-98.5 F 55-79 11-28 93-139/54-86 92-100 Exam: General appearance: Pleasant and cooperative. No acute distress. - Head Head exam: Present: normal inspection, normocephalic, atraumatic. Absent: hematoma, laceration - Eye Eye exam: Present: EOMI. Absent: conjunctival injection, nystagmus, periorbital swelling, scleral icterus, laceration to eyelids Pupils: Present: PERRL. Absent: constricted, dilated, fixed, irregular, unequal - ENT ENT exam: Present: normal exam, normal external ear exam - Neck Neck exam: Present: normal inspection. Absent: lymphadenopathy, meningismus, tenderness, thyromegaly - Respiratory Respiratory exam: Present: clear to auscultation bilaterally, chest wall tenderness. Absent: accessory muscle use, chest wall tenderness - Cardiovascular Cardiovascular exam: Present: regular rate and rhythm. Absent: carotid bruit, gallop, JVD, rubs, murmur - GI/Abdominal GI/Abdominal exam: Present: normal bowel sounds, soft. Absent: distended, firm , guarding, hernia, mass, tenderness, rebound. - Extremities Exam Extremities exam: Present: normal inspection, normal capillary refill. Upper extremity pulses 2+. Lower extremity pulses 2+. Absent: calf tenderness, edema - Back Exam Back exam: Present: normal inspection. Absent: muscle spasm, vertebral tenderness - Neurological Exam Neurological exam: Present: alert, oriented X3, grossly intact without resting or essential tremor - Psychiatric Psychiatric exam: Present: normal affect, normal mood - Skin Skin exam: Present: normal color, warm, dry, intact. Absent: cyanosis, diaphoretic, rash, urticaria Discharge Results Procedures and tests throughout hospitalization: Pending Orders 03/11/17 00:50 MRSA Surveillence, Inf Control Routine 03/11/17 08:47 NM calli perf SPECT rest or str Routine Labs on day of discharge: Labs from last 24 hours 03/11/17 03/11/17 03/11/17 03:52 03:52 03:52 Sodium Potassium Chloride Carbon Dioxide Anion Gap BUN Creatinine GFR Calculation BUN/Creatinine Ratio Glucose Calculated Osmolality Calcium Total Bilirubin 1.10 H Direct Bilirubin 0.20 Indirect Bilirubin 0.9 AST 14 ALT 15 L Alkaline Phosphatase 67 Troponin I B-Natriuretic Peptide 88 Total Protein 5.5 L Albumin 3.6 Triglycerides 138 Cholesterol 165 LDL Cholesterol 93.0 VLDL Cholesterol 27.6 HDL Cholesterol 58 Heart Disease Risk Ratio 2.84 Lipase 113.0 03/11/17 03/11/17 03/10/17 03:52 03:52 22:23 Sodium 141 Potassium 4.0 Chloride 106 Carbon Dioxide 26 Anion Gap 13.0 BUN 16 Creatinine 0.80 GFR Calculation 103 BUN/Creatinine Ratio 20.00 Glucose 92 Calculated Osmolality 281.3 Calcium 8.7 Total Bilirubin Direct Bilirubin Indirect Bilirubin AST ALT Alkaline Phosphatase Troponin I < 0.015 < 0.015 B-Natriuretic Peptide Total Protein Albumin Triglycerides Cholesterol LDL Cholesterol VLDL Cholesterol HDL Cholesterol Heart Disease Risk Ratio Lipase 03/10/17 20:49 Sodium Potassium Chloride Carbon Dioxide Anion Gap BUN Creatinine GFR Calculation BUN/Creatinine Ratio Glucose Calculated Osmolality Calcium Total Bilirubin Direct Bilirubin Indirect Bilirubin AST ALT Alkaline Phosphatase Troponin I < 0.015 B-Natriuretic Peptide Total Protein Albumin Triglycerides Cholesterol LDL Cholesterol VLDL Cholesterol HDL Cholesterol Heart Disease Risk Ratio Lipase DS: Provider Date of admission: 03/10/17 19:23 Primary care physician: Brenna Singer Attending physician on admission: Lela Reyna DO Discharging clinician: PADMINI Roth Expected date of discharge: 03/11/17 <Irvin Melissa - Last Filed: 03/11/17 17:20> Hospital Course - Hospital Course Hospital Course: Cardiology addendum. Status post proximal mid LAD stents January 06, 2017. At that time circumflex stent was patent and the right groin was occluded with good [id number] collaterals Atypical chest pain. Normal Lexiscan cardiac stress test today. Ejection fraction 62%. This is a low risk scan. Noncardiac chest pain. Patient reassured. Home today Office follow-up with Dr. Espinosa as scheduled Routine GE reflux precautions reviewed again.
[2017-03-11 17:13] VITALS: BP 121/76
[2017-03-11] MEDS ORDERED: SERTRALINE 50 MG TABLET PO SCH (18:00)
[2017-03-11] MEDS ORDERED: CETIRIZINE 10 MG TABLET PO SCH (18:00)
--- NOTE | 2017-03-11 18:38 | Nuclear Medicine Report ---
PROCEDURE: LEXISCAN CARDIOLITE GATED SPECT. REFERRING: Braulio Rivas DO INITIAL IMPRESSION: 1. CAD, STATUS POST LAD STENT 01/06/2017. 2. ATYPICAL CHEST PAIN. 3. ABNORMAL EKG. FINAL IMPRESSION: NORMAL LEXISCAN CARDIOLITE GATED SPECT. I. DESCRIPTION OF PROCEDURE: The patient received 10.0 mCi of Technetium-99m Cardiolite IV and res t images were obtained in the routine manner 20 minutes later. The patient then walked for 3 minute s on a low-level treadmill and received 0.4 mg of IV Lexiscan followed by 30.0 mCi of Technetium-99m Cardiolite IV and pharmacologic stress imaging was obtained in the routine manner 20 minutes later. Serial electrocardiograms were performed. The initial blood pressure was 130/76 and it was 146/76 immediately post Lexiscan. The peak heart rate was 93. II. RESULTS: The patient had no chest pain or arrhythmias and tolerated Lexiscan walk well. The r esting EKG demonstrates normal sinus rhythm with right bundle-branch blood and ST-T-wave changes. W ith pharmacologic stress, no diagnostic EKG changes occurred. No arrhythmias. Tomographic imaging demonstrates homogeneous uptake of radioisotope in all segments. There is no ev idence for ischemia or scar. Gated SPECT imaging demonstrates normal wall motion and thickening in all segments. The calculated ejection fraction is 62%. III. FINAL IMPRESSION: 1. CLINICALLY AND ELECTROGRAPHICALLY NEGATIVE. 2. SCINTIGRAPHICALLY NORMAL PERFUSION STUDY. IV. DISPOSITION: The patient status post proximal and distal LAD stents 01/06/2017. He remains w ell revascularized. He had no chest pain or diagnostic EKG changes, and tomographic imaging is norm al. In addition, ventricular function is well preserved with ejection fraction 62%. This is a low- risk scan. Continued medical therapy and risk factor modification recommended. Procedure performed and interpreted at [facility] Department of Radiology. CC: Braulio Rivas DO
== END 2017-03-11 17:20 | disposition home or self-care (01) ==
LOC: N.EDINP 16:27 → N.ED 16:27 → N.TELES 19:48 → N.CC 03-11 00:35
PROVIDERS: ADMIT Internal Medicine Cardiovascular Disease; ATTEND Internal Medicine Cardiovascular Disease

== ENCOUNTER 2017-08-26 10:53 | Observation (INO) ==
--- NOTE | 2017-08-26 11:16 | EKG Report ---
Stationary ECG Study [facility] ER Test Date: 08/26/2017 11:02:24 AM Pat Name: NELIDA KYLE Department: Room: Gender: M Barn Boss: : 1940 Requested by: Nehemiah Davison Order Number: [id number] Reading MD: MEGAN JOSHI Intervals [place] Rate: 56 P: 56 DC: 172 QRS: 77 QRSD: 105 T: 63 QT: 473 QTc: 465 Interpretive Statements SINUS RHYTHM POSSIBLE RIGHT VENTRICULAR CONDUCTION DELAY/INCOMPLETE RBBB Electronically Signed On 08-30-17 06:31:08 CDT by MEGAN JOSHI [email or web address]
[2017-08-26] MEDS ORDERED: ENOXAPARIN 100 MG/ML SYRINGE SUBCUT STA (11:38)
[2017-08-26 12:01] LABS: Basophils % 0.5 % (0.0-0.8); Eosinophils # 0.2 10*3/uL (0.0-0.87); Eosinophils % 2.4 % (0.00-10.9); Hematocrit 40.5 VOL% (42.0-52.0); Hemoglobin 13.8 GM/DL (14.0-18.0); Immature Granulocytes % 0.2 %; Immature Granulocytes Absolute 0.01 #; Lymphocytes # 1.6 10*3/uL (1.4-4.0); Lymphocytes % 24.6 % (21.2-54.2); Mean Corpuscular HGB Conc 34.1 GM/DL (32-36); Mean Corpuscular Hemoglobin 32 PG (27-34); Mean Platelet Volume 10.1 FL (9.6-12.0); Monocytes # 0.5 10*3/uL (0.11-0.8); Monocytes % 7.5 % (1.7-12.7); Neutrophils # 4.2 10*3/uL (1.4-7.4); Neutrophils % 64.8 % (38.7-73.9); Platelet Count 181 T/CUMM (130-400); Red Blood Count 4.31 MC/CUMM (3.8-5.5); Red Cell Distribution Width 11.9 % (9.3-17.3); White Blood Count 6.5 T/CUMM (4-12)
[2017-08-26] MEDS ORDERED: ONDANSETRON 4 MG/2 ML VIAL ONE (12:04)
[2017-08-26] MEDS ORDERED: ENOXAPARIN 80 MG/0.8 ML SYRINGE SUBCUT ONE (12:04)
[2017-08-26] MEDS ORDERED: NITROGLYCERIN SL 0.4 MG TABLET SL ONE (12:04)
[2017-08-26] MEDS ORDERED: NITROGLYCERIN SL 0.4 MG TABLET SL STA (12:08)
[2017-08-26 12:09] LABS: INR 1.1; PT Patient Result 11.1 SECS
[2017-08-26] MEDS ORDERED: ONDANSETRON 4 MG/2 ML VIAL IV STA (12:13)
--- NOTE | 2017-08-26 12:28 | XRay Report ---
History: Chest pain Date: 08/26/2017 Study: Chest x-ray PA and lateral Comparison exam: March 10, 2017 The cardiac silhouette is not enlarged. There is no mediastinal mass. The pulmonary vasculature is not engorged. The lungs and pleural spaces are clear. There is osteopenia and mild thoracic spondylosis. Impression: No acute cardiopulmonary process compared to the previous study PROCEDURE INTERPRETED AT [facility] DEPARTMENT OF RADIOLOGY Final Report Signed by: Dr. Kelly Andrews
[2017-08-26 12:43] LABS: Albumin 4.2 G/DL (3.4-5.0); Bilirubin,Total 0.7 MG/DL (0.2-1.0); Calcium 9.4 MG/DL (8.5-10.1); Magnesium 2.3 MG/DL (1.8-2.4); Osmolality,Calculated 281.3 MOS/KG (273-304); Potassium 4.3 MMOL/L (3.5-5.1); Total Protein 6.3 G/DL (6.4-8.3)
[2017-08-26] MEDS ORDERED: MAGNESIUM SULF RIDER 2 GM in PREMIX 1 EACH IV PRN ×3 (13:13→15:28)
[2017-08-26] MEDS ORDERED: MAGNESIUM SULF RIDER 4 GM in PREMIX 1 EACH IV PRN (13:13)
--- NOTE | 2017-08-26 13:16 | Emergency Department Note ---
Varsha Ayon Rolonda, am scribing for, and in the presence of, Nehemiah Todd MD 11:43. Peyton Ayon Phillip K, MD, personally performed the services described in this documentation, ascribed by Boy Maddox in my presence, and it is both accurate and complete 316 . Arrival - Arrival Chief Complaint: Chest Pain Stated Complaint: chest pain nausea left arm pain ED Nursing Triage Note: reports having some chest pain off and on for two weeks but got worse yesterday and he had to leave cheondoism. reports has some nausea and sob with the pain yesterday. Mode of Arrival: Ambulatory Limitations: No Limitations Source: Patient, Old Records Reviewed, RN Notes Reviewed Time Seen by Provider: 08/26/17 11:22 - History of Present Illness HPI Narrative: Pt is a 77 y/o male who presents to the ED for further evaluation of CP with an onset of weeks. Pt has a PMHx of [place], Stents, Heart cath, HTN and CAD.Pt states that the pain has been intermittent for weeks. He states that the pain comes with exertion and at rest as well. he states that the CP is mainly on the left side and radiates to the left arm. He states that the pain is a "heart ache". He confirms that he took ASA today and 1 NTG yesterday with relief. Pt states that he is on Plavix and the last heart cath was in January. No other complaint /pain in ED. Onset (ago): week(s) Consistency: constant Severity: moderate Severity scale (1-10): 5 Allergies/Adverse Reactions: Allergies Allergy/AdvReac Type Severity Reaction Status Date / Time No Known Allergies Allergy Verified 03/10/17 16:48 Home Medications: Home Medications Medication Instructions Recorded Confirmed Type Aspirin [Ecotrin] 81 mg PO QAM 10/02/15 03/10/17 History Lisinopril 2.5 mg PO QAM 10/02/15 03/10/17 History Sertraline [Zoloft] 50 mg PO PC SUPPER 10/02/15 03/10/17 History Metoprolol Tartrate Tab [Lopressor 12.5 mg PO BID #30 tablet 10/12/15 03/10/17 Rx Tab] Nitroglycerin Sl Tab [Nitrostat] 0.4 mg SL Q5M PRN #25 tablet 10/12/15 03/10/17 Rx Ranolazine [Ranexa] 1,000 mg PO BID #60 tablet 01/06/16 03/10/17 Rx Cetirizine Tab [ZyrTEC Tab] 10 mg PO PC SUPPER 03/03/16 03/10/17 History Pantoprazole Tab [Protonix Tab] 40 mg PO BID 03/03/16 03/10/17 History Isosorbide Mononitrate [Imdur] 60 mg PO QAM 07/17/16 03/10/17 History Atorvastatin [Lipitor] 80 mg PO BEDTIME 01/06/17 03/10/17 History Clopidogrel [Plavix] 75 mg PO QAM 03/10/17 03/10/17 History Simethicone Chew Tab [Mylanta Gas 125 mg PO PC PRN 03/10/17 03/10/17 History Max Str] Review of System - Review of System 12 point system: reviewed and no additional remarkable complaints except as stated - Review of System Constitutional: Absent: diaphoresis Eyes: Absent: discharge Respiratory: Present: respiratory distress (SOB) Cardiovascular: Present: chest pain Gastrointestinal: Present: nausea Genitourinary male: Absent: dysuria Musculoskeletal: Present: arm pain (left ) Skin: Absent: rash Neurological: Absent: headache Psychiatric: Absent: anxiety Endocrine: Absent: cold intolerance Hematological/Lymphatic: Absent: easy bleeding Allergic/Immunologic: Absent: facial swelling Medical,Surgical,& Family Hx - Medical History Cardio: History of: CAD, Hypertension, [place], Cardiovascular Problems No history of: Aneurysm, Cardiac Dysrhythmia, Cerebrovascular Disease, Congenital Heart Disease, CHF, Pacemaker, PVD, Valvular Heart Disease Psychological: History of: Depression Neurology: No history of: Brain Aneurysm, Cerebral Hemorrhage, Cerebrovascular Accident , Cerebral Palsy, Dementia, Migraine, Multiple Sclerosis, Parkinson's Disease, Peripheral Neuropathy, Seizures, TIA, Vertigo, Neurologocal Cancer HEENT: History of: Ear Problem (Hearing Aids), Eye Problem (Glasses), Dental Problems (Partial upper Dentures), HEENT Problems (vertigo) Endocrine: History of: Dyslipidemia No history of: Diabetes Mellitus (IDDM), Diabetes Mellitus (NIDDM), Thyroid Disorder Respiratory: No history of: Obstructive Sleep Apnea Genitourinary: History of: Kidney Stones Gastrointestinal: History of: GERD, GI Problems (Erosive esophagitis) Musculoskeletal: History of: Musculoskeletal Problems (arthritis) No history of: Amputation - Surgical History Cardiac Surgeries: Sugical HX of: Cardiac Catheterization (stents in 2017) Patient Denies: Femoral-Popliteal Bypass Graft, Cardiac Surgery, Carotid Endarterectomy, Internal Defibrillator, Vascular Access Devices Thoracic Surgeries: Patient denies;: Lobectomy Neurologic Surgeries: Patient denies: Brain Aneurysm, Cerebral Hemorrhage, Neurologic Surgery HEENT Surgeries: Patient denies: Carotid Endarterectomy, Eye Surgery, Thyroid Surgery, Tonsilectomy & Adenoidectomy Abdominal Surgeries: Surgical HX of: Abdominal Surgery, Cholecystectomy, Colonoscopy, EGD, Hernia Repair Patient denies: Appendectomy, Splenectomy Reproductive Surgeries: Patient denies;: Genitourinary Surgery Orthopedic Surgeries: Patient denies;: Implanted Devices, Orthopedic Surgery, Spinal Surgery, Total Hip Replacement, Total Knee Replacement - Family History Family History: Reports;: Family Cancer (BROTHERS AND SISTER), Family Diabetes ( MOTHER), Family Heart Disease (BROTHERS AND SISTER) - Social History Smoking Status: Former smoker Exam Vital Signs: Vital Signs Temperature 97.5 F L 08/26/17 11:15 Pulse Rate 54 L 08/26/17 12:15 Respiratory Rate 20 08/26/17 12:15 Blood Pressure 123/74 08/26/17 12:15 O2 Sat by Pulse Oximetry 97 08/26/17 12:15 - General General appearance: alert, in no apparent distress - Head Head exam: Present: atraumatic, normocephalic - Eye Eye exam: Present: PERRL, EOMI - ENT ENT exam: Present: mucous membranes moist. Absent: mucous membranes dry - Neck Neck exam: Present: full ROM. Absent: tenderness - Chest Chest inspection: Present: symmetric chest wall rise. Absent: tenderness - Respiratory Respiratory exam: Present: rales (right base). Absent: normal lung sounds bilaterally - Cardiovascular Cardiovascular exam: Present: regular rate, normal rhythm, normal heart sounds. Absent: bradycardia - Abdominal Exam Abdominal exam: Present: soft, normal bowel sounds. Absent: tenderness - Extremities Exam Extremities exam: Present: full ROM. Absent: tenderness - Back Exam Back exam: Present: full ROM. Absent: tenderness - Neurological Exam Neurological exam: Present: alert, oriented X3, CN II-XII intact - Psychiatric Psychiatric exam: Present: normal affect, normal mood - Skin Skin exam: Present: warm, dry, intact, normal color. Absent: rash Course Course Narrative: Patient discussed with Dr. Knott will admit for serial isoenzymes. Patient's pain relieved with 2 nitroglycerin sublingual in the ED. Results - Labs CBC & BMP: 08/26/17 11:48 08/26/17 11:48 Lab Results: I have reviewed the patients labs Labs: Laboratory Tests 08/26/17 11:48 WBC 6.5 RBC 4.31 Hgb 13.8 L Hct 40.5 L Plt Count 181 Laboratory Tests 08/26/17 11:48 INR 1.1 PT Patient/Control Mix 11.1 Laboratory Tests 08/26/17 08/26/17 11:48 11:48 Sodium 141 Potassium 4.3 Chloride 107 Carbon Dioxide 30 GFR Calculation 97 Glucose 90 AST 16 B-Natriuretic Peptide 205 H Total Protein 6.3 L Globulin 2.1 L - EKG EKG results: interpreted by ERMD, WNL, sinus rhythm - Diagnostic Findings Procedure: Chest x-ray: report reviewed by me (No acute cardiopulmonary process compared to the previous study.) Disposition Clinical Impression: Chest pain, Possible unstable angina Case discussed with: patient Disposition: Still a Patient Condition: Guarded Additional Instructions: Admit to Dr. Knott
[2017-08-26] MEDS ORDERED: NITROGLYCERIN SL 0.4 MG TABLET SL PRN ×2 (15:07→15:23)
--- NOTE | 2017-08-26 15:16 | Cardiology History & Physical ---
<Jaki Chadwick E - Last Filed: 08/26/17 15:19> Assessment and Plan - Time spent with patient Time spent with patient: Greater than 30 minutes (1) Chest pain Status: Acute Assessment and plan: SEE PLAN OF CARE LISTED BELOW Current Visit: Yes (2) CAD (coronary artery disease) Status: Chronic Assessment and plan: SEE PLAN OF CARE LISTED BELOW Current Visit: No (3) Dyslipidemia Status: Chronic Assessment and plan: SEE PLAN OF CARE LISTED BELOW Current Visit: No (4) Hypertension Status: Chronic Assessment and plan: SEE PLAN OF CARE LISTED BELOW Current Visit: No History of Present Illness Chief complaint: Chest pain, shortness of breath, known coronary artery disease History of present illness: FERN CUTTER: DR. REYNA PCP: GIULIANO MURPHY Patient is being seen in the emergency depart Mr. Galo, 77WM, has risk factors significant for: age, known severe three- vessel CAD, hypertension, dyslipidemia. Most recent cardiac catheterization January 06, 2017 patient required PCI of distal-LAD, PCI of mid-LAD, POBA of ostium D2. (He has had numerous heart catheterizations in the past requiring interventions). Presented to the ED August 26, 2017 with complaints of worsening chest pain occurring over the past 3 weeks, specifically worse over the past several days. Located in the mid and left chest area without radiation , described as tight and squeezing lasting several minutes at a time. Associated with shortness of breath. Reports activities are bringing on the discomfort and rest relieves discomfort. Rates the discomfort as a 7 on a scale of 1-10, currently chest pain-free. Patient states that the chest discomfort he has been experiencing is similar to the same type of discomfort he had in January 2017 when he required intervention. He does describe other complaints of chest pain which are atypical in nature including discomfort when bending over at the waist and tenderness to touch in the left chest area. Cardiac biomarkers negative, EKG does not reveal acute ME (does have a prolonged QT.) At this point, continue to cycle cardiac biomarkers and EKG. He has received aspirin and a therapeutic dose of Lovenox, nitroglycerin. He has had his home medications this morning which include blood pedigree will, metoprolol and lisinopril. Will continue his lipid-lowering agent with an FLP in the morning. Will keep NPO after midnight tonight for possible cardiac catheterization in the morning. Will further discuss with Dr. Knott and await additional recommendations. IMPRESSION/PLAN: 1. CHEST PAIN - concerning for angina. Will keep NPO after midnight tonight for possible catheterization tomorrow. 2. KNOWN SEVERE THREE VESSEL CAD - has required multiple interventions in the past, most recently in January 2017. Continue dual antiplatelet therapy. NPO after midnight 3. HYPERTENSION - continue beta-blockade and GUALBERTO inhibitor 4. DYSLIPIDEMIA - fasting lipid profile tomorrow morning. Continue lipid- lowering agent tonight. Home Medications Medication Instructions Recorded Confirmed Type Aspirin [Ecotrin] 81 mg PO QAM 10/02/15 08/26/17 History Lisinopril 5 mg PO QAM 10/02/15 08/26/17 History Sertraline [Zoloft] 50 mg PO PC SUPPER 10/02/15 08/26/17 History Metoprolol Tartrate Tab [Lopressor 12.5 mg PO BID #30 tablet 10/12/15 08/26/17 Rx Tab] Nitroglycerin Sl Tab [Nitrostat] 0.4 mg SL Q5M PRN #25 tablet 10/12/15 08/26/17 Rx Cetirizine Tab [ZyrTEC Tab] 10 mg PO PC SUPPER 03/03/16 08/26/17 History Pantoprazole Tab [Protonix Tab] 40 mg PO BID 03/03/16 08/26/17 History Isosorbide Mononitrate [Imdur] 60 mg PO QAM 07/17/16 08/26/17 History Atorvastatin [Lipitor] 40 mg PO QOTHER DAY 01/06/17 08/26/17 History Clopidogrel [Plavix] 75 mg PO QAM 03/10/17 08/26/17 History Allergies Allergy/AdvReac Type Severity Reaction Status Date / Time No Known Allergies Allergy Verified 03/10/17 16:48 Review of systems: REVIEW OF SYSTEMS: - Constitutional Constitutional: Present: Fatigue. Absent: syncope, anorexia, night sweats - EENT Eyes: Absent: blurry vision, loss of vision, diplopia Ears: Absent: decreased hearing, ear pain, ear discharge - Cardiovascular Cardiovascular: Present: chest pain with exertion, dyspnea on exertion. Denies edema, palpitations. Absent: chest pain with deep breath, claudication - Respiratory Respiratory: Present: WHITE, denies cough. Absent: wheezing, hemoptysis, change in phlegm color - Gastrointestinal Gastrointestinal: Denies constipation. Absent: abdominal pain, hematemesis, hematochezia, melena, change in bowel habits, nausea - Genitourinary Genitourinary: Absent: difficulty urinating, dysuria, urinary hesitancy, flank pain - Musculoskeletal Musculoskeletal: Present: back pain Absent: joint swelling, muscle cramps, muscle weakness - Neurological Neurological: Present: normal gait without frequent falls. Absent: dizziness, hemiparesis - Psychiatric Psychiatric: Absent: anxiety, depression, difficulty concentrating - Endocrine Endocrine: Present: fatigue. Absent: cold intolerance, heat intolerance, polyuria, polyphagia, polydipsia - Hematologic/Lymphatic Hematologic/Lymphatic: Present: easy bruising. Absent: easy bleeding -Integumentary Integumentary: Absent: lesions, rashes, skin breakdown Medical,Surgical,& Family Hx - Medical History Cardio: History of: CAD, Hypertension, ME, Cardiovascular Problems No history of: Aneurysm, Cardiac Dysrhythmia, Cerebrovascular Disease, Congenital Heart Disease, CHF, Pacemaker, PVD, Valvular Heart Disease Psychological: History of: Depression Neurology: No history of: Brain Aneurysm, Cerebral Hemorrhage, Cerebrovascular Accident , Cerebral Palsy, Dementia, Migraine, Multiple Sclerosis, Parkinson's Disease, Peripheral Neuropathy, Seizures, TIA, Vertigo, Neurologocal Cancer HEENT: History of: Ear Problem (Hearing Aids), Eye Problem (Glasses), Dental Problems (Partial upper Dentures), HEENT Problems (vertigo) Endocrine: History of: Dyslipidemia No history of: Diabetes Mellitus (IDDM), Diabetes Mellitus (NIDDM), Thyroid Disorder Respiratory: No history of: Obstructive Sleep Apnea Genitourinary: History of: Kidney Stones Gastrointestinal: History of: GERD, GI Problems (Erosive esophagitis) Musculoskeletal: History of: Musculoskeletal Problems (arthritis) No history of: Amputation - Surgical History Cardiac Surgeries: Sugical HX of: Cardiac Catheterization (stents in 2017) Patient Denies: Femoral-Popliteal Bypass Graft, Cardiac Surgery, Carotid Endarterectomy, Internal Defibrillator, Vascular Access Devices Thoracic Surgeries: Patient denies;: Lobectomy Neurologic Surgeries: Patient denies: Brain Aneurysm, Cerebral Hemorrhage, Neurologic Surgery HEENT Surgeries: Patient denies: Carotid Endarterectomy, Eye Surgery, Thyroid Surgery, Tonsilectomy & Adenoidectomy Abdominal Surgeries: Surgical HX of: Abdominal Surgery, Cholecystectomy, Colonoscopy, EGD, Hernia Repair Patient denies: Appendectomy, Splenectomy Reproductive Surgeries: Patient denies;: Genitourinary Surgery Orthopedic Surgeries: Patient denies;: Implanted Devices, Orthopedic Surgery, Spinal Surgery, Total Hip Replacement, Total Knee Replacement - Family History Family History: Reports;: Family Cancer (BROTHERS AND SISTER), Family Diabetes ( MOTHER), Family Heart Disease (BROTHERS AND SISTER) - Social History Smoking Status: Former smoker Have you smoked in the last 12 months: No Type of Drug Use: None Marital Status: Lives With:: Spouse Functional capacity: independent ambulation Cardiology Physical Exam - Constitutional Vitals: Vital Signs Temp Pulse Resp BP Pulse Ox 97.5 F L 53 L 20 124/73 98 08/26/17 11:15 08/26/17 13:30 08/26/17 13:30 08/26/17 13:30 08/26/17 13:30 Intake and Output 08/25/17 08/26/17 08/26/17 23:59 07:59 15:59 Other: Weight 84.822 kg Patient Weight 08/26/17 23:59 Weight 84.822 kg Exam: General: [Appears well with no apparent distress.] [Pleasant and cooperative. ] [Appears comfortable.] HEENT: [PERRL, normocephalic, atraumatic. Mucous membranes moist. No jaundice noted. Conjunctiva moist and clear, sclerae anicteric] Neck: No JVD/HJR, no thyromegaly or lymphadenopathy noted. No carotid bruit appreciated Cardiac: [Regular rate and rhythm.] [No obvious murmur rub or gallop.] Multiple varicosities of bilateral lower extremity Lungs: [Clear to auscultation without accessory muscle use to assist the respiratory pattern.] Not requiring oxygen Abdomen: Soft, bowel sounds normoactive. Nontender and nondistended. No abdominal bruit or thrill noted. No masses noted. Musculoskeletal: No fluid collection. Decreased range of motion is noted. Extremities: No clubbing, cyanosis noted. [ No edema noted.] Upper extremity pulses 2+. Lower extremity pulses 2+. Capillary refill less than 3 seconds. Skin: No unusual lesions or rashes. No skin breakdown appreciated. Neuro: Awake, alert and oriented 3. Moves all extremities well without hemiparesis or paralysis. No essential tremor is appreciated. Result/EKG - Labs CBC & BMP: 08/26/17 11:48 08/26/17 11:48 Lab Results: I have reviewed the past 24 hour labs Labs: Laboratory Results - last 24 hr 08/26/17 08/26/17 08/26/17 11:48 11:48 11:48 WBC RBC Hgb Hct MCV MCH MCHC RDW Plt Count MPV Neut % (Auto) Lymph % (Auto) [place] % (Auto) Eos % (Auto) Baso % (Auto) Neut # (Auto) Lymph # (Auto) [place] # (Auto) Eos # (Auto) Baso # (Auto) Immature Gran % Nucleated RBC % Immature Gran # Nucleated RBCs # Immature Plt Fraction INR 1.1 PT Patient/Control Mix 11.1 Sodium 141 Potassium 4.3 Chloride 107 Carbon Dioxide 30 Anion Gap 8.3 BUN 15 Creatinine 0.90 GFR Calculation 97 BUN/Creatinine Ratio 16.00 Glucose 90 Calculated Osmolality 281.3 Calcium 9.4 Magnesium 2.3 Total Bilirubin 0.70 AST 16 ALT 20 Alkaline Phosphatase 87 Troponin I < 0.015 B-Natriuretic Peptide Total Protein 6.3 L Albumin 4.2 Globulin 2.1 L Albumin/Globulin Ratio 2.0 08/26/17 08/26/17 11:48 11:48 WBC 6.5 RBC 4.31 Hgb 13.8 L Hct 40.5 L MCV 94.0 MCH 32 MCHC 34.1 RDW 11.9 Plt Count 181 MPV 10.1 Neut % (Auto) 64.8 Lymph % (Auto) 24.6 [place] % (Auto) 7.5 Eos % (Auto) 2.4 Baso % (Auto) 0.5 Neut # (Auto) 4.2 Lymph # (Auto) 1.6 [place] # (Auto) 0.5 Eos # (Auto) 0.2 Baso # (Auto) 0.0 Immature Gran % 0.2 Nucleated RBC % 0.0 Immature Gran # 0.01 Nucleated RBCs # 0.00 Immature Plt Fraction 0.0 INR PT Patient/Control Mix Sodium Potassium Chloride Carbon Dioxide Anion Gap BUN Creatinine GFR Calculation BUN/Creatinine Ratio Glucose Calculated Osmolality Calcium Magnesium Total Bilirubin AST ALT Alkaline Phosphatase Troponin I B-Natriuretic Peptide 205 H Total Protein Albumin Globulin Albumin/Globulin Ratio - Diagnostic Findings Procedure: Chest x-ray: report reviewed by me - EKG EKG results: interpreted by me EKG shows: sinus rhythm <Knott,Devante Serafin - Last Filed: 08/26/17 15:50> History of Present Illness History of present illness: Mr. Galo is a 77 year old male whom I have personally interviewed and examined and chart reviewed. The patient's coronary disease as noted above. At this time he needs reevaluation acutely secondary to having unstable angina symptomatology with known diseases already described. He is requiring a lot of pain medication and nitroglycerin. I discussed cardiac catheterization is already mentioned in my visit note. Please see that for details. They are agreeable to pursue cardiac catheterization. If his catheterization is unremarkable then further GI evaluation will Dr. Liu may be necessary. Cardiology Physical Exam - Constitutional Vitals: Vital Signs Temp Pulse Resp BP Pulse Ox 97.5 F L 65 20 164/90 98 08/26/17 11:15 08/26/17 15:30 08/26/17 15:30 08/26/17 15:30 08/26/17 15:30 Intake and Output 08/25/17 08/26/17 08/26/17 23:59 07:59 15:59 Other: Weight 84.822 kg Patient Weight 08/26/17 23:59 Weight 84.822 kg Result/EKG - Labs CBC & BMP: 08/26/17 11:48 08/26/17 11:48 Labs: Laboratory Results - last 24 hr 08/26/17 08/26/17 08/26/17 11:48 11:48 11:48 WBC RBC Hgb Hct MCV MCH MCHC RDW Plt Count MPV Neut % (Auto) Lymph % (Auto) [place] % (Auto) Eos % (Auto) Baso % (Auto) Neut # (Auto) Lymph # (Auto) [place] # (Auto) Eos # (Auto) Baso # (Auto) Immature Gran % Nucleated RBC % Immature Gran # Nucleated RBCs # Immature Plt Fraction INR 1.1 PT Patient/Control Mix 11.1 Sodium 141 Potassium 4.3 Chloride 107 Carbon Dioxide 30 Anion Gap 8.3 BUN 15 Creatinine 0.90 GFR Calculation 97 BUN/Creatinine Ratio 16.00 Glucose 90 Calculated Osmolality 281.3 Calcium 9.4 Magnesium 2.3 Total Bilirubin 0.70 AST 16 ALT 20 Alkaline Phosphatase 87 Troponin I < 0.015 B-Natriuretic Peptide Total Protein 6.3 L Albumin 4.2 Globulin 2.1 L Albumin/Globulin Ratio 2.0 08/26/17 08/26/17 11:48 11:48 WBC 6.5 RBC 4.31 Hgb 13.8 L Hct 40.5 L MCV 94.0 MCH 32 MCHC 34.1 RDW 11.9 Plt Count 181 MPV 10.1 Neut % (Auto) 64.8 Lymph % (Auto) 24.6 [place] % (Auto) 7.5 Eos % (Auto) 2.4 Baso % (Auto) 0.5 Neut # (Auto) 4.2 Lymph # (Auto) 1.6 [place] # (Auto) 0.5 Eos # (Auto) 0.2 Baso # (Auto) 0.0 Immature Gran % 0.2 Nucleated RBC % 0.0 Immature Gran # 0.01 Nucleated RBCs # 0.00 Immature Plt Fraction 0.0 INR PT Patient/Control Mix Sodium Potassium Chloride Carbon Dioxide Anion Gap BUN Creatinine GFR Calculation BUN/Creatinine Ratio Glucose Calculated Osmolality Calcium Magnesium Total Bilirubin AST ALT Alkaline Phosphatase Troponin I B-Natriuretic Peptide 205 H Total Protein Albumin Globulin Albumin/Globulin Ratio
[2017-08-26] MEDS ORDERED: DIAZEPAM 5 MG TABLET PO ONE (15:20)
[2017-08-26] MEDS ORDERED: POTASSIUM CHLORIDE RIDER 10 MEQ in PREMIX 1 EACH IV PRN ×2 (15:20→15:28)
[2017-08-26] MEDS ORDERED: diphenhydrAMINE CAP 25 MG CAPSULE PO ONE (15:20)
[2017-08-26] MEDS ORDERED: MORPHINE 2 MG/1 ML SYRINGE ONE (15:20)
[2017-08-26] MEDS ORDERED: LIDOCAINE 1% 20 ML VIAL ONE (15:24)
--- NOTE | 2017-08-26 15:27 | Event Note ---
Patient 77-year-old man who has had prior coronary disease and intervention. He is followed by Dr. Lela Espinosa. Presents emergency room this today complaining of chest pain that waxes and wanes and comes and goes relieved by nitroglycerin. He states she has had this pain previously has had interventions previously that would resolve the pain for time to have the pain return and then be reevaluated and found to have no coronary disease or significant disease. He has been evaluated by GI medicine who Dr. Liu recently just placed him on Reglan. It is been questionable how much of his pain is been cardiac or not. Because his continue to have chest pain now and is certain ways had prior to intervention he needs catheterization this afternoon for reevaluation of what is unstable angina. Reviewing this patient's chart he has had 3 places in his LAD intervened October 2015. He has LOOKBACK COORDINATOR opened of the right coronary artery 2 days after that evaluation. He had chest pain July 2016 and it was quite severe relieved by nitro for short periods of time but no elevation in his cardiac biomarkers ECG was unchanged. He was treated medically. He underwent cardiac catheterization January 2017 and underwent stenting of the distal LAD with a 2.25 x 8 mm Synergy stent and in the mid LAD with a 3.5 x 20 mm Synergy stent and underwent PL BA second diagonal secondary to jailing. Since the patient is continued to have chest pain at that we should do cardiac catheterization to reevaluate the status of his coronary arteries. He is requiring nitroglycerin frequently. I have discussed this procedure the patient and his reviewing the indication procedure how would be carried out and the risk. I discussed cardiac catheterization and percutaneous coronary intervention with the patient and available family. I reviewed with them the indications for the procedure and the basis of how the procedure would be carried out. I also reviewed with them the risk of the procedure which include but not necessarily limited to access site bleeding, bruising, pain, swelling or vascular injury that may require emergency vascular surgery, blood transfusion, or thrombin injection. Also discussed the possibility of stroke, myocardial infarction, arrhythmia which may require electrocardioversion, and the possibility of dye reaction that would require medical therapy. Also discussed the possibility of coronary artery injury, ruptured, closure or perforation that may require emergency bypass surgery. We also discussed the possibility of from a major complication. They voice understanding and agree to proceed. We will plan on doing this today.
--- NOTE | 2017-08-26 15:28 | History and Physical Update ---
Sedation H&P Update - History and Physical H&P was reviewed, the patient examined and there: are no changes in the patients condition since last H&P was completed. - Dictation Physical: refer to H&P completed by admitting physician - Physical Exam Mental Status: alert and oriented Heart: regular rate and rhythm Lung: clear to auscultation Abdomen: within normal limits Vitals: within normal limits History and Physical Changes: None - Sedation Plan for Sedation: moderate Patient Consent: Procedure disscussed with patient and patinet has consented., Risks and benefits were discussed with patient,including infection,, bleeding, injury to surrounding structures, seizure, temporary nerve, Patient understands and accepts potential risks/benefits and agrees to, proceed. ASA Class: III Airway Assessment: Class III: Soft palate, base of uvula visible
[2017-08-26] MEDS ORDERED: SODIUM CHLORIDE 0.9% 1,000 ML IV SCH ×2 (15:30→18:00)
[2017-08-26] MEDS ORDERED: MORPHINE 2 MG/1 ML SYRINGE IV STA (15:39)
[2017-08-26] MEDS ORDERED: MIDAZOLAM 2 MG/2 ML VIAL ONE (17:04)
[2017-08-26] MEDS ORDERED: fentaNYL 100 MCG/2 ML VIAL ONE (17:05)
--- NOTE | 2017-08-26 17:38 | Operative Note ---
Date of procedure: 08/26/17 Procedure Preformed: Left heart catheterization with LV gram and selective left coronary angiogram. Surgeon / Physician: Devante Knott Presales Senior Specialist: Tung Cintron Post-op diagnosis: same Findings: Normal left ventricular function, RCA is known to be totally occluded and is seen by way of left to right collateralization. Left coronary arteries are stable with stents patent. First diagonal still with high-grade stenosis but very small vessel and unchanged. Do not find new disease to account for the patient's symptoms. Specimens: none sent Estimated blood loss: minimal Condition: stable Anesthesia: local, conscious sedation Disposition: floor
[2017-08-26] MEDS ORDERED: SERTRALINE 50 MG TABLET PO SCH ×2 (18:00)
[2017-08-26] MEDS ORDERED: CETIRIZINE 10 MG TABLET PO SCH ×2 (18:00)
--- NOTE | 2017-08-26 18:03 | Cardiac Catheterization ---
Date of Procedure:: 08/26/17 Pre-op Diagnosis: Unstable angina with known coronary disease. Post-op diagnosis: same Procedure: LEFT HEART CATHERIZATION History: 77-year-old man who has had previous percutaneous coronary mentioned along the LAD and circumflex artery. RCA is known to be totally occluded with attempts made previously and felt. Pre-Op diagnosis: Coronary disease with crescendo unstable angina. Postoperative diagnosis: Coronary disease that is stable with patent stents without new disease or changes to account for his symptoms. Procedures: 1. Left heart catheterization. 2. Left ventricular angiogram. 3. Selective left coronary angiograms. 4. Right common femoral artery angiogram with Angio-Seal hemostasis. Equipment: 6 Mauritanian arterial sheath, 6 Mauritanian diagnostic pigtail catheter and JL4 diagnostic catheters. A 6 [place]itanian Angio-Seal hemostatic device. Medications: Preoperative Benadryl and Valium given by mouth. Lidocaine 1% local anesthesia 10 mls administered by myself. Intraprocedure patient received Versed 2 mgs IVP, fentanyl 100 mcg IVP. Complications: None immediate. Contrast: Visipaque 77 milliliters. Description of procedure: After informed consent the patient was given preoperative medications and brought to the catheterization laboratory where their right groin was prepped and draped in usual fashion. IV sedation was then obtained after which local anesthesia was administered at the right groin over the right common femoral artery. Using modified Seldinger technique the right common femoral artery was cannulated with 6 [place]itanian arterial sheath placed. The pigtail catheter was then advanced through the sheath in a retrograde approach through the aorta to the aortic valve. The catheter was advanced through the aortic valve where left ventricular pressures were measured. The catheter was then pulled back into the aortic root and pressures measured. The catheter was then advanced across the aortic valve into the left ventricle where left ventricular angiogram was obtained in the right anterior oblique view. The pigtail catheter was then removed. The JL4 diagnostic coronary catheter was then advanced through the sheath in a retrograde approach and used to cannulate the left coronary artery of which angiograms were obtained in multiple projections. This catheter was then removed. RCA angiograms were not obtained since this is known previously to be totally occluded. Angiograms were then reviewed. We did not find any new disease or abnormalities to account for the patient's symptomatology. We did review and compare these to his January 2017 angiograms. Right common femoral artery angiogram was obtained by direct injection through the sheath. Angio-Seal hemostasis then obtained in the right common femoral artery. Hemodynamic data: LV 136/-3, EDP 16; AO root 132/70, mean 96. Left ventricular angiogram: Left ventricle is normal size and systolic function ejection fraction of 60+% without segmental wall motion abnormalities. Left main coronary artery angiogram: Limited coronary is large luminal irregularities bifurcating LAD and circumflex arteries. No stenosis noted. Left anterior descending artery angiogram: The LAD is medium caliber to large caliber proximally. He has diffuse stents proximally in mid vessel as well as distally. First diagonal is small with 90% stenosis with at least WOODY II flow. This vessel was previously attempted for intervention but unable to be carried out secondary to stents crossing the ostium and small size vessel. The second diagonal is patent with 50% or less proximal ostial stenosis and with WOODY-3 flow. The LAD proper has WOODY-3 flow. The distal LAD at the apex is small and with at least 50-70% stenosis. Circumflex artery angiogram: Circumflex arteries a medium caliber vessel smaller than the LAD. First second and third obtuse marginal branches are very small. The fourth obtuse marginal branch has a mid takeoff and has a proximal stent present that is widely patent. Beyond this the circumflex artery continues giving rise to some small posterior ventricular branches. There are collaterals from the circumflex artery to the RCA. Should be noted that the proximal circumflex artery has less than 30% stenosis. The rest of the circumflex artery mid vessel has less than 30% stenosis. Fourth obtuse marginal branch with a widely patent stent has less than 50% stenosis present. Right coronary artery angiogram: RCA is not visualized by direct angiogram since it is known to have total occlusion proximally. There is visualization of some of the distal and mid RCA by way of left to right collaterals from the LAD and circumflex artery system. Right common femoral artery angiogram: Right comfort arteries widely patent with sheath inserting the cuff artery. Successful Angio-Seal hemostasis. Impression: 1. Left ventricle is normal size systolic function ejection fraction 60 +% . 2. LVEDP is upper limits of normal at 60 mmHg. 3. There is no mitral valve regurgitation significant study. 4. Aortic valve appears to be grossly a tricuspid structure without any gradient significance. 5. RCA is known to be totally occluded and is seen by way of left to right collaterals as described above. 6. Left main coronary artery with luminal irregularities otherwise widely patent. 7. Circumflex artery diffuse calcification and with less than 30% stenosis proximally mid vessel. Fourth obtuse marginal branch widely patent stent in less than 50% stenosis otherwise. 8. LAD with patent stents proximal, mid vessel and distally widely patent. First diagonal still with 90+% stenosis and small vessel. Second diagonal was less than 50% stenosis. 9. Right comfort arteries patent with successful Angio-Seal hemostasis. Discussion: We do not find disease to account for the patient hematology. Flow overall is as good or better than previously. It is unlikely the first diagonal lesion is causing the symptoms this is been there previously. The RCA is known to be totally occluded previously and is not an interventional candidate. We will treat the patient medically at this time will ask GI medicine to see the patient. Implants: None, Angio-Seal hemostasis the right common femoral artery. Anesthesia: local, moderate conscious sedation Surgeon / Physician: Devante Knott Systems Integration Manager: other (Tung Cintron RN) Estimated blood loss: minimal Specimens: none sent Condition: stable Disposition: floor - Medications / Follow-up
[2017-08-26] MEDS ORDERED: fentaNYL 100 MCG/2 ML VIAL IV ONE (18:10)
[2017-08-26] MEDS ORDERED: MIDAZOLAM 2 MG/2 ML VIAL IV ONE (18:10)
[2017-08-26] MEDS: METOCLOPRAMIDE 10 MG TABLET PO SCH (20:29)
[2017-08-26] MEDS: PANTOPRAZOLE 40 MG TABLET PO SCH (20:29)
[2017-08-26] MEDS ORDERED: PANTOPRAZOLE 40 MG TABLET PO SCH (21:00)
[2017-08-26] MEDS ORDERED: METOPROLOL TARTRATE 25 MG TABLET PO SCH ×2 (21:00)
[2017-08-26] MEDS: MORPHINE 2 MG/1 ML SYRINGE IV PRN (22:41)
[2017-08-26] MEDS: ONDANSETRON 4 MG/2 ML VIAL IV PRN (23:45)
[2017-08-27 05:13] LABS: Basophils % 0.3 % (0.0-0.8); Eosinophils # 0.3 10*3/uL (0.0-0.87); Eosinophils % 4.2 % (0.00-10.9); Hematocrit 39.1 VOL% (42.0-52.0); Hemoglobin 13.3 GM/DL (14.0-18.0); Immature Granulocytes % 0.2 %; Immature Granulocytes Absolute 0.01 #; Lymphocytes # 1.7 10*3/uL (1.4-4.0); Lymphocytes % 28.4 % (21.2-54.2); Mean Corpuscular Hemoglobin 32 PG (27-34); Mean Corpuscular Volume 94.2 FL (87-102); Mean Platelet Volume 10.5 FL (9.6-12.0); Monocytes # 0.5 10*3/uL (0.11-0.8); Monocytes % 8.5 % (1.7-12.7); Neutrophils # 3.5 10*3/uL (1.4-7.4); Neutrophils % 58.4 % (38.7-73.9); Platelet Count 165 T/CUMM (130-400); Red Blood Count 4.15 MC/CUMM (3.8-5.5)
[2017-08-27 05:43] LABS: Calcium 8.7 MG/DL (8.5-10.1); Magnesium 2.2 MG/DL (1.8-2.4); Potassium 4.2 MMOL/L (3.5-5.1)
--- NOTE | 2017-08-27 05:48 | EKG Report ---
Stationary ECG Study [facility] Test Date: 08/26/2017 6:27:19 PM Pat Name: NELIDA KYLE Department: Room: 269 Gender: M [employer]amic [employer] Designer: CT : 1940 Requested by: Nehemiah Davison Order Number: [id number] Reading MD: MEGAN JOSHI Intervals [place] Rate: 56 P: 42 VT: 183 QRS: 73 QRSD: 114 T: 55 QT: 468 QTc: 459 Interpretive Statements SINUS RHYTHM MODERATE INTRAVENTRICULAR CONDUCTION DELAY Electronically Signed On 08-30-17 06:45:04 CDT by MEGAN JOSHI [email or web address]
[2017-08-27 06:03] LABS: Cholesterol 129 MG/DL (50-200); HDL Cholesterol 43 MG/DL (40-60); Triglycerides 122 MG/DL (2-150); Troponin I Only < 0.015 NG/ML (0.00-0.045); VLDL CHOLESTEROL 24.4 MG/DL
[2017-08-27] MEDS: METOCLOPRAMIDE 10 MG TABLET PO SCH ×4 (08:04→20:39)
[2017-08-27] MEDS: PANTOPRAZOLE 40 MG TABLET PO SCH ×2 (08:04→20:39)
[2017-08-27] MEDS: ONDANSETRON 4 MG/2 ML VIAL IV PRN ×2 (08:46→13:48)
[2017-08-27] MEDS: MORPHINE 2 MG/1 ML SYRINGE IV PRN ×2 (08:46→13:48)
[2017-08-27] MEDS ORDERED: ASPIRIN EC 81 MG TABLET PO SCH ×2 (09:00)
[2017-08-27] MEDS ORDERED: ASPIRIN 325 MG TABLET PO SCH (09:00)
[2017-08-27] MEDS ORDERED: CLOPIDOGREL 75 MG TABLET PO SCH ×2 (09:00)
[2017-08-27] MEDS ORDERED: ISOSORBIDE MONONITRATE 60 MG TABLET PO SCH ×2 (09:00)
[2017-08-27] MEDS ORDERED: LISINOPRIL 5 MG TABLET PO SCH ×2 (09:00)
[2017-08-27] MEDS ORDERED: ALUM/MAG/SIMETH/LIDO VISC 1:1 30 ML BOTTLE PO ONE (09:24)
--- NOTE | 2017-08-27 11:00 | Cardiology Progress Note ---
Exam (Progress Note) - Constitutional Vitals: Period Temp Pulse Resp BP Sys/Seymour Pulse Ox Last 24 Hr 97.1 F-98.6 F 51-65 18-20 108-164/57-90 93-99 Result/EKG - Labs CBC & BMP: 08/27/17 04:32 08/27/17 04:32 Labs: Laboratory Results - last 24 hr 08/26/17 08/26/17 08/26/17 11:48 11:48 11:48 WBC RBC Hgb Hct MCV MCH MCHC RDW Plt Count MPV Neut % (Auto) Lymph % (Auto) [place] % (Auto) Eos % (Auto) Baso % (Auto) Neut # (Auto) Lymph # (Auto) [place] # (Auto) Eos # (Auto) Baso # (Auto) Immature Gran % Nucleated RBC % Immature Gran # Nucleated RBCs # Immature Plt Fraction INR 1.1 PT Patient/Control Mix 11.1 Sodium 141 Potassium 4.3 Chloride 107 Carbon Dioxide 30 Anion Gap 8.3 BUN 15 Creatinine 0.90 GFR Calculation 97 BUN/Creatinine Ratio 16.00 Glucose 90 Calculated Osmolality 281.3 Calcium 9.4 Magnesium 2.3 Total Bilirubin 0.70 AST 16 ALT 20 Alkaline Phosphatase 87 Troponin I < 0.015 B-Natriuretic Peptide Total Protein 6.3 L Albumin 4.2 Globulin 2.1 L Albumin/Globulin Ratio 2.0 Triglycerides Cholesterol LDL Cholesterol VLDL Cholesterol HDL Cholesterol Heart Disease Risk Ratio 08/26/17 08/26/17 08/26/17 11:48 11:48 18:21 WBC 6.5 RBC 4.31 Hgb 13.8 L Hct 40.5 L MCV 94.0 MCH 32 MCHC 34.1 RDW 11.9 Plt Count 181 MPV 10.1 Neut % (Auto) 64.8 Lymph % (Auto) 24.6 [place] % (Auto) 7.5 Eos % (Auto) 2.4 Baso % (Auto) 0.5 Neut # (Auto) 4.2 Lymph # (Auto) 1.6 [place] # (Auto) 0.5 Eos # (Auto) 0.2 Baso # (Auto) 0.0 Immature Gran % 0.2 Nucleated RBC % 0.0 Immature Gran # 0.01 Nucleated RBCs # 0.00 Immature Plt Fraction 0.0 INR PT Patient/Control Mix Sodium Potassium Chloride Carbon Dioxide Anion Gap BUN Creatinine GFR Calculation BUN/Creatinine Ratio Glucose Calculated Osmolality Calcium Magnesium Total Bilirubin AST ALT Alkaline Phosphatase Troponin I < 0.015 B-Natriuretic Peptide 205 H Total Protein Albumin Globulin Albumin/Globulin Ratio Triglycerides Cholesterol LDL Cholesterol VLDL Cholesterol HDL Cholesterol Heart Disease Risk Ratio 08/26/17 08/27/17 08/27/17 21:07 04:32 04:32 WBC 6.0 RBC 4.15 Hgb 13.3 L Hct 39.1 L MCV 94.2 MCH 32 MCHC 34.0 RDW 12.0 Plt Count 165 MPV 10.5 Neut % (Auto) 58.4 Lymph % (Auto) 28.4 [place] % (Auto) 8.5 Eos % (Auto) 4.2 Baso % (Auto) 0.3 Neut # (Auto) 3.5 Lymph # (Auto) 1.7 [place] # (Auto) 0.5 Eos # (Auto) 0.3 Baso # (Auto) 0.0 Immature Gran % 0.2 Nucleated RBC % 0.0 Immature Gran # 0.01 Nucleated RBCs # 0.00 Immature Plt Fraction 0.0 INR PT Patient/Control Mix Sodium 143 Potassium 4.2 Chloride 106 Carbon Dioxide 28 Anion Gap 13.2 BUN 19 H Creatinine 0.80 GFR Calculation 101 BUN/Creatinine Ratio 23.00 H Glucose 78 Calculated Osmolality 285.0 Calcium 8.7 Magnesium 2.2 Total Bilirubin AST ALT Alkaline Phosphatase Troponin I < 0.015 B-Natriuretic Peptide Total Protein Albumin Globulin Albumin/Globulin Ratio Triglycerides Cholesterol LDL Cholesterol VLDL Cholesterol HDL Cholesterol Heart Disease Risk Ratio 08/27/17 04:32 WBC RBC Hgb Hct MCV MCH MCHC RDW Plt Count MPV Neut % (Auto) Lymph % (Auto) [place] % (Auto) Eos % (Auto) Baso % (Auto) Neut # (Auto) Lymph # (Auto) [place] # (Auto) Eos # (Auto) Baso # (Auto) Immature Gran % Nucleated RBC % Immature Gran # Nucleated RBCs # Immature Plt Fraction INR PT Patient/Control Mix Sodium Potassium Chloride Carbon Dioxide Anion Gap BUN Creatinine GFR Calculation BUN/Creatinine Ratio Glucose Calculated Osmolality Calcium Magnesium Total Bilirubin AST ALT Alkaline Phosphatase Troponin I < 0.015 B-Natriuretic Peptide Total Protein Albumin Globulin Albumin/Globulin Ratio Triglycerides 122 Cholesterol 129 LDL Cholesterol 66.0 VLDL Cholesterol 24.4 HDL Cholesterol 43 Heart Disease Risk Ratio 3.00 Quality Measures - VTE Contraindication to Pharmacological VTE Prophylaxis: High Risk of Bleeding Specialty Discharge - Follow Up or Referrals
--- NOTE | 2017-08-27 13:15 | Gastrointestinal Consult Note ---
Assessment and Plan (1) Atypical chest pain Status: Acute Assessment and plan: This patient has had a workup done starting in 2014 for reflux and atypical chest pain. Based on esophageal manometry studies he does not have nutcracker esophagus. He did not evidence gross esophagitis either although that was back in 2014 when he was last checked. The patient remains on Protonix 40 mg twice daily which should be covering him almost completely for her acid reflux in any event. We will perform upper endoscopy again tomorrow and plan to clip a Kerns 48-hour pH monitoring device to the inside of his esophagus to monitor him for a period of 48 hours to see what kind of acid suppression he is getting with Protonix. If for some reason he had breakthrough on this level of acid suppression he might be a good candidate for Alli fundoplication. This circumstance is highly unusual. If the patient were to have bile acid reflux I think this would have been improved by the Reglan currently being used. Unfortunately was not able to afford the Dexilant and so we cannot use this as a second line agent to treat his underlying reflux. Risks of the above procedure were reviewed with the patient include but are not limited to: Bleeding, infection, perforation, cardiac and pulmonary compromise. Current Visit: No (2) GERD (gastroesophageal reflux disease) Status: Chronic Assessment and plan: Note that this patient is back on his Protonix 40 mg twice daily which should be suppressing his acid level significantly. We will continue this medication through this hospitalization at least until we can perform the 48 hour Kerns pH monitoring study to see what sort of efficacy we are getting with the treatment. Again he may be a candidate for Alli fundoplication if he cannot be controlled with p.o. medications and has significant evidence of esophagitis and/or significant reflux discovered on the pH monitoring study Current Visit: No (3) Gastroparesis Status: Acute Assessment and plan: The patient is currently being treated with Reglan but does not seem to have any significant improvement. This was started about on the of this month which was only 6 days ago it may be that he does not been on the medication long enough to experience a major effect yet. On upper endoscopy will look and see if there is any evidence of retained food or fluid through the stomach. We may have to switch the patient to erythromycin but would like to avoid this given the propensity for that medication to produce arrhythmias. Current Visit: Yes (4) Gastritis Status: Chronic Assessment and plan: As mentioned above. We will repeat upper endoscopy tomorrow and examine for the state of the gastritis. Previously the biopsy for this was negative for Helicobacter pylori. Current Visit: No Qualifiers: Gastritis bleeding: without bleeding (5) Screening for colorectal cancer Status: Acute Assessment and plan: This can be arranged as an outpatient, whenever the patient wishes to pursue. Current Visit: Yes History of Present Illness Chief complaint: Atypical chest pain, GERD, nausea, mild gastroparesis History of present illness: Mr. Galo is a 77 year old male who has been evaluated by Dr. Espinosa and by Dr. Knott in the past with hospitalization back in July 19, 2016 as well as a cardiac catheterization this admission by Dr. Knott. The patient has had atypical chest pain and previously had been taken to upper endoscopy as recently as 10/11/15 that showed no gross evidence of esophagitis. A more recent gastric emptying study was done on 07/19/16 which showed a T1 half emptying time of 133 minutes which is slightly delayed and thus when the patient came back into the office on 08/21/[address] him on some Reglan elixir with 10 mg q. before meals and nightly. Despite taking this medication he has not improved much in terms of his nausea or his atypical chest pain. The patient is also undergone an esophageal manometry study done on 07/19/16 which showed relatively normal esophageal motility with 20% double peak some 10% triple peak swallows indicating acid reflux up into the esophagus but no significant esophageal spasm/nutcracker esophagus. The patient has been on Protonix 40 mg twice daily which should be giving him 20 hours worth of good acid relief per day. On the off chance he may be refractory to this medication we have set him up to do a Kerns 48 hour pH monitoring study tomorrow in conjunction with an upper endoscopy repeat to look for significant changes. I do not the patient is extremely anxious and has been increased in his Zoloft intake from 50 mg per day to 100 mg per day. He has been written to get Dexilant to try instead of the Protonix twice daily but was not able to afford this medication. He remains on pantoprazole 40 mg twice daily. 48 hour Kerns monitoring study should be able to tell us whether this is giving him good acid relief. He states that his chest pain is approximately a 7 out of 10 in intensity and is located at the lateral left chest wall at about the level of T5. He states that he can tell the difference between his cardiac and acid type pains appear only rarely does he have epigastric tenderness usually associated with bloating. He states that he cannot tell if the Reglan is doing much of anything at all. Home Medications Medication Instructions Recorded Confirmed Type Aspirin [Ecotrin] 81 mg PO QAM 10/02/15 08/26/17 History Lisinopril 5 mg PO QAM 10/02/15 08/26/17 History Sertraline [Zoloft] 100 mg PO PC SUPPER 10/02/15 08/26/17 History Metoprolol Tartrate Tab [Lopressor 12.5 mg PO BID #30 tablet 10/12/15 08/26/17 Rx Tab] Nitroglycerin Sl Tab [Nitrostat] 0.4 mg SL Q5M PRN #25 tablet 10/12/15 08/26/17 Rx Cetirizine Tab [ZyrTEC Tab] 10 mg PO PC SUPPER 03/03/16 08/26/17 History Pantoprazole Tab [Protonix Tab] 40 mg PO BID 03/03/16 08/26/17 History Isosorbide Mononitrate [Imdur] 60 mg PO QAM 07/17/16 08/26/17 History Atorvastatin [Lipitor] 40 mg PO QOTHER DAY 01/06/17 08/26/17 History Clopidogrel [Plavix] 75 mg PO QAM 03/10/17 08/26/17 History Metoclopramide Liquid [Reglan 10 mg PO ACHS 08/26/17 08/26/17 History Liquid] Allergies Allergy/AdvReac Type Severity Reaction Status Date / Time No Known Allergies Allergy Verified 08/26/17 18:12 Medical,Surgical,& Family Hx - Medical History Cardio: History of: CAD, Hypertension, [place], Cardiovascular Problems No history of: Aneurysm, Cardiac Dysrhythmia, Cerebrovascular Disease, Congenital Heart Disease, CHF, Pacemaker, PVD, Valvular Heart Disease Psychological: History of: Depression Neurology: No history of: Brain Aneurysm, Cerebral Hemorrhage, Cerebrovascular Accident , Cerebral Palsy, Dementia, Migraine, Multiple Sclerosis, Parkinson's Disease, Peripheral Neuropathy, Seizures, TIA, Vertigo, Neurologocal Cancer HEENT: History of: Ear Problem (Hearing Aids), Eye Problem (Glasses), Dental Problems (Partial upper Dentures), HEENT Problems (vertigo) Endocrine: History of: Dyslipidemia No history of: Diabetes Mellitus (IDDM), Diabetes Mellitus (NIDDM), Thyroid Disorder Respiratory: No history of: Obstructive Sleep Apnea Genitourinary: History of: Kidney Stones Gastrointestinal: History of: GERD, GI Problems (Erosive esophagitis) Musculoskeletal: History of: Musculoskeletal Problems (arthritis) No history of: Amputation - Surgical History Cardiac Surgeries: Sugical HX of: Cardiac Catheterization (stents in 2017) Patient Denies: Femoral-Popliteal Bypass Graft, Cardiac Surgery, Carotid Endarterectomy, Internal Defibrillator, Vascular Access Devices Thoracic Surgeries: Patient denies;: Lobectomy Neurologic Surgeries: Patient denies: Brain Aneurysm, Cerebral Hemorrhage, Neurologic Surgery HEENT Surgeries: Patient denies: Carotid Endarterectomy, Eye Surgery, Thyroid Surgery, Tonsilectomy & Adenoidectomy Abdominal Surgeries: Surgical HX of: Abdominal Surgery, Cholecystectomy, Colonoscopy, EGD, Hernia Repair Patient denies: Appendectomy, Splenectomy Reproductive Surgeries: Patient denies;: Genitourinary Surgery Orthopedic Surgeries: Patient denies;: Implanted Devices, Orthopedic Surgery, Spinal Surgery, Total Hip Replacement, Total Knee Replacement - Family History Family History: Reports;: Family Cancer (BROTHERS AND SISTER), Family Diabetes ( MOTHER), Family Heart Disease (BROTHERS AND SISTER) - Social History Smoking Status: Former smoker Type of Drug Use: None Review of systems: Constitutional: Denies fever, chills, or vomiting, the patient does have some mild nausea Eyes: Denies dry eyes, and scleral icterus HENT: Denies headaches Cardiovascular: Denies acute chest pain and claudication Respiratory: Denies shortness of breath, wheezing, and difficulty breathing, denies cough Gastrointestinal: As noted in the HPI Genitourinary: Denies dysuria and hematuria Neurologic: Denies vision loss, and loss of sensation Musculoskeletal: He does have some mild joint swelling, joint stiffness, and muscular weakness Psychiatric: While the patient is anxious he does not feel depression or jaylon symptoms Heme-Lymph: Denies easy bruising, lymph node enlargement or tenderness, night sweats, excessive bleeding Allergies-immunologic: Denies pruritus and rhinorrhea Exam - Constitutional Vitals: Period Temp Pulse Resp BP Sys/Seymour Pulse Ox Last 24 Hr 97.1 F-98.6 F 51-67 18-20 108-164/57-90 93-99 General appearance: mild distress, other (Patient feels somewhat anxious ) - Head Head exam: Present: normocephalic, atraumatic - Eye Eye exam: Present: EOMI Pupils: Present: NOEMI - Neck Neck exam: Present: normal inspection - Respiratory Respiratory exam: Present: clear to auscultation bilaterally, chest wall tenderness (See below in cardiovascular section). Absent: rhonchi, stridor, wheezes - Cardiovascular Cardiovascular exam: Present: regular rate and rhythm, other (Tenderness on the left lateral chest wall about T5 somewhat left of the midclavicular line) - GI/Abdominal GI/Abdominal exam: Present: normal bowel sounds, soft. Absent: distended, guarding, tenderness, rebound - Extremities Exam Extremities exam: Absent: edema - Neurological Exam Neurological exam: Present: alert, oriented X3, CN II-XII intact. Absent: motor sensory deficit - Psychiatric Psychiatric exam: Present: normal affect, normal mood - Skin Skin exam: Present: warm Results - Labs CBC & BMP: 08/27/17 04:32 08/27/17 04:32 Quality Measures - VTE Contraindication to Pharmacological VTE Prophylaxis: High Risk of Bleeding Specialty Discharge - Follow Up or Referrals
--- NOTE | 2017-08-27 13:22 | Cardiology Progress Note ---
Assessment and Plan - Time spent with patient Time spent with patient: Greater than 30 minutes (1) Chest pain Status: Chronic Assessment and plan: Chest pain presently is noncardiac and probably GI. Dr. Liu of gastroenterology is evaluating the patient and plans on pH monitoring. This replaced tomorrow. I have started the patient on some Toradol. Also with the patient having a lot of issues with anxiety we will try some Tranxene as needed. Current Visit: No Qualifiers: Chest pain type: unspecified Qualified Code(s): R07.9 - Chest pain, unspecified (2) Coronary artery disease Status: Chronic Assessment and plan: Catheterization yesterday revealed that this is to be stable. Patient's troponins are nondetectable indicating pain noncardiac. Current Visit: No Qualifiers: Coronary Disease-Associated Artery/Lesion type: [place] artery (3) Dyslipidemia Status: Chronic Assessment and plan: Patient's lipids are at goal on present medical regimen which we will continue. Current Visit: No (4) Anemia Status: Chronic Assessment and plan: Chronic issue that is stable. Current Visit: No (5) Atypical chest pain Status: Acute Assessment and plan: Much of his atypical pains that he has had presently and previously was secondary to GI. Certainly a muscle skeletal component may be present. Current Visit: No (6) GERD (gastroesophageal reflux disease) Status: Chronic Current Visit: No (7) Gastritis Status: Chronic Assessment and plan: Chronic issue followed by Dr. Weeks. Current Visit: No Qualifiers: Gastritis bleeding: without bleeding Cardiology - PN: Subj Interval history: Patient admitted yesterday through the emergency room because of persistent chest pain that was concerning for cardiac. He did have known coronary disease previously involving stents of his LAD and circumflex artery with total occlusion of his RCA. His catheterization yesterday did not reveal any significant disease to account for symptoms and no change. His stents were widely patent. Since his admission he has cardiac enzymes/biomarkers remain nondetectable. His ECG is unchanged. His pain is unlikely cardiac. We are awaiting Dr. Liu's evaluation from a GI standpoint. He has a lot of GI issues previously. I did discuss with the patient that this may be some anxiety overload and will start him on some Tranxene. Certainly some this may be muscle skeletal I think at least 4 doses of IV Toradol may be of benefit unless Dr. Calvit thinks differently. I discussed this case with Dr. Lela Espinosa who is his primary file machine operator. Overall it is agreed that this is probably noncardiac and has had recurrent issues of chest pain is been felt to be noncardiac. Exam (Progress Note) - Constitutional Vitals: Period Temp Pulse Resp BP Sys/Seymour Pulse Ox Last 24 Hr 97.1 F-98.6 F 53-67 18-20 108-164/57-90 93-99 Exam: General appearance: normal weight, no acute distress HEENT exam: normal inspection, atraumatic Neck exam: normal inspection no JVD. No carotid bruit. Trachea is in midline Respiratory/lungs exam: clear to auscultation bilaterally good air movement. Cardiovascular exam: regular rate and rhythm, no murmur or gallop or rub. No precordial lift. Chest wall exam: nontender GI/Abdominal exam: normal bowel sounds, soft, nontender, no abdominal bruits or pulsatile masses. Extremeties/musculoskeletal: normal inspection without edema or cyanosis. His right groin is stable with slight direct tenderness but there was no pulsatile mass or bruits noted. Neurological exam: alert, oriented X3, no focal deficits Psychiatric exam: normal affect, normal mood. Cognitive function is grossly normal. Skin exam: normal color, warm Result/EKG - Labs CBC & BMP: 08/27/17 04:32 08/27/17 04:32 Lab Results: I have reviewed the past 24 hour labs (The patient's biomarkers/ cardiac enzymes are unremarkable in nondetectable.) Labs: Laboratory Results - last 24 hr 08/26/17 08/26/17 08/27/17 18:21 21:07 04:32 WBC 6.0 RBC 4.15 Hgb 13.3 L Hct 39.1 L MCV 94.2 MCH 32 MCHC 34.0 RDW 12.0 Plt Count 165 MPV 10.5 Neut % (Auto) 58.4 Lymph % (Auto) 28.4 [place] % (Auto) 8.5 Eos % (Auto) 4.2 Baso % (Auto) 0.3 Neut # (Auto) 3.5 Lymph # (Auto) 1.7 [place] # (Auto) 0.5 Eos # (Auto) 0.3 Baso # (Auto) 0.0 Immature Gran % 0.2 Nucleated RBC % 0.0 Immature Gran # 0.01 Nucleated RBCs # 0.00 Immature Plt Fraction 0.0 Sodium Potassium Chloride Carbon Dioxide Anion Gap BUN Creatinine GFR Calculation BUN/Creatinine Ratio Glucose Calculated Osmolality Calcium Magnesium Troponin I < 0.015 < 0.015 Triglycerides Cholesterol LDL Cholesterol VLDL Cholesterol HDL Cholesterol Heart Disease Risk Ratio 08/27/17 08/27/17 04:32 04:32 WBC RBC Hgb Hct MCV MCH MCHC RDW Plt Count MPV Neut % (Auto) Lymph % (Auto) [place] % (Auto) Eos % (Auto) Baso % (Auto) Neut # (Auto) Lymph # (Auto) [place] # (Auto) Eos # (Auto) Baso # (Auto) Immature Gran % Nucleated RBC % Immature Gran # Nucleated RBCs # Immature Plt Fraction Sodium 143 Potassium 4.2 Chloride 106 Carbon Dioxide 28 Anion Gap 13.2 BUN 19 H Creatinine 0.80 GFR Calculation 101 BUN/Creatinine Ratio 23.00 H Glucose 78 Calculated Osmolality 285.0 Calcium 8.7 Magnesium 2.2 Troponin I < 0.015 Triglycerides 122 Cholesterol 129 LDL Cholesterol 66.0 VLDL Cholesterol 24.4 HDL Cholesterol 43 Heart Disease Risk Ratio 3.00 Quality Measures - VTE Contraindication to Pharmacological VTE Prophylaxis: High Risk of Bleeding Specialty Discharge - Follow Up or Referrals
[2017-08-27] MEDS ORDERED: LORazepam 2 MG/1 ML VIAL IV PRN (13:26)
[2017-08-27] MEDS ORDERED: CLORAZEPATE 3.75 MG TABLET PO PRN (13:28)
[2017-08-27] MEDS: KETOROLAC 30 MG/1 ML VIAL IV SCH ×2 (13:48→20:39)
[2017-08-28] MEDS: KETOROLAC 30 MG/1 ML VIAL IV SCH ×2 (04:13→07:50)
[2017-08-28 06:55] LABS: Basophils % 0.6 % (0.0-0.8); Eosinophils # 0.3 10*3/uL (0.0-0.87); Eosinophils % 3.9 % (0.00-10.9); Hematocrit 43.5 VOL% (42.0-52.0); Hemoglobin 15.3 GM/DL (14.0-18.0); Immature Granulocytes % 0.3 %; Immature Granulocytes Absolute 0.02 #; Lymphocytes # 1.7 10*3/uL (1.4-4.0); Lymphocytes % 23.2 % (21.2-54.2); Mean Corpuscular HGB Conc 35.2 GM/DL (32-36); Mean Corpuscular Hemoglobin 33 PG (27-34); Mean Corpuscular Volume 93.1 FL (87-102); Mean Platelet Volume 10.1 FL (9.6-12.0); Monocytes # 0.5 10*3/uL (0.11-0.8); Monocytes % 7.4 % (1.7-12.7); Neutrophils # 4.6 10*3/uL (1.4-7.4); Neutrophils % 64.6 % (38.7-73.9); Platelet Count 196 T/CUMM (130-400); Red Blood Count 4.67 MC/CUMM (3.8-5.5); Red Cell Distribution Width 11.8 % (9.3-17.3); White Blood Count 7.2 T/CUMM (4-12)
[2017-08-28 07:19] LABS: Calcium 9.2 MG/DL (8.5-10.1); Magnesium 2.4 MG/DL (1.8-2.4); Osmolality,Calculated 282.4 MOS/KG (273-304); Potassium 4.6 MMOL/L (3.5-5.1)
[2017-08-28] MEDS ORDERED: PROPOFOL 200 MG/20 ML VIAL IV ONE (08:18)
[2017-08-28] MEDS ORDERED: LIDOCAINE 2% 5 ML VIAL ONE (08:18)
--- NOTE | 2017-08-28 08:39 | Operative Note ---
Date of procedure: 08/28/17 Pre-op diagnosis: Atypical chest pain, rule out refractory GERD with Stanton Post-op diagnosis: other (Successful placement of 48 hour Stanton pH monitor in the distal esophagus at 6 cm above the GE junction. Mild esophagitis, 2 cm hiatal hernia, mild linear gastritis noted as well. Widely patent Schatzki's ring noted in addition.) Procedure: PROCEDURE: Esophagogastroduodenoscopy (EGD) with cold biopsy for pathology and 48 hour stanton pH monitor placement REFERRING PHYSICIAN: Devante Knott MD INDICATIONS: The patient has atypical chest pain and reflux symptoms. Rule out refractory GERD on Protonix 40 mg twice daily. The prior H&P was reviewed and interrim changes are as noted: No change from GI consultation yesterday ENDOSCOPIST: Irvin Liu MD ENDOSCOPE: Olympus Video 100 System upper endoscope ASA CLASS: 3 EXAM: CV: regular rate and rhythm respiratory: Clear without wheezes abdominal: active bowel sounds MEDICATION: Per nursing anesthesia protocol, see their notes PROCEDURE: After discussion of the potential risks and benefits of upper endoscopy, the informed consent was obtained. The patient was then placed in the left lateral decubitus position where sedation was achieved as noted above. Esophageal intubation was performed without difficulty, and the endoscope was advanced through the esophagus, stomach and duodenum. A slow withdrawal was then performed with retroflexion in the stomach for careful inspection of the incisura angularis, fundus and cardia. The scope was then returned to a neutral position and withdrawn through the esophagus. The patient tolerated the procedure well and without complication. BIOPSIES: Distal esophagus and gastric antrum/body PHOTOGRAPHS: Obtained FINDINGS: Hypopharynx and Larynx: Normal Esohagoscopy Upper and middle thirds: Normal Lower third Hint of esophagitis at the EG junction, biopsy Esophogastric junctions: Widely patent Schatzki's ring noted here, no gross evidence of Connolly's, possible low-grade esophagitis noted. At the end of the case the GE junction was noted to be at 38 cm, the Stanton pH wire was advanced into the esophagus to 32 cm and Stanton was clipped into place after appropriate suctioning. The placement was confirmed visually post procedure ( from above only). Gastroscopy: Cardia/Fundus: 2 cm hiatal hernia noted Body: Mild diffuse gastritis, biopsied Antrum and pylorus mild diffuse gastritis with a few linear erosions noted, biopsied Duodenoscopy: Bulb normal Second and third portions: Normal IMPRESSION: Successful placement of 48 hour Stanton pH monitor in the distal esophagus at 6 cm above the GE junction. Mild esophagitis, 2 cm hiatal hernia, mild linear gastritis noted as well. Widely patent Schatzki's ring noted in addition. RECOMMENDATIONS: Follow up for biopsy results in 1-2 weeks by phone [phone] Continue anti-gastroesophageal reflux measures (avoid carbonated and acidic beverages, avoid eating within 2 hours of bedtime, avoid tight fitting clothing , and elevate the front bed posts 6 inches prior to sleeping. Return to clinic in 48 hours to drop off monitor for evaluation of ongoing reflux. Patient is instructed to continue his Protonix 40 mg twice daily to see if this is adequate. If ongoing reflux is documented we may have to have the patient undergo Alli fundoplication. Irvin Liu MD COPY TO: Serafin Knott MD Anesthesia: MAC Surgeon / Physician: Irvin Liu Estimated blood loss: minimal Specimens: other (Distal esophagus, gastric antrum/body) Condition: stable Disposition: post procedure unit (G.I. Suite) Results - Labs CBC & BMP: 08/28/17 06:41 08/28/17 06:41 Discharge Plan - Discharge Medications No Action Sertraline [Zoloft] 100 mg PO PC SUPPER Lisinopril 5 mg PO QAM Aspirin [Ecotrin] 81 mg PO QAM Metoprolol Tartrate Tab [Lopressor Tab] 12.5 mg PO BID #30 tablet Nitroglycerin Sl Tab [Nitrostat] 0.4 mg SL Q5M PRN #25 tablet PRN Reason: Chest Pain Pantoprazole Tab [Protonix Tab] 40 mg PO BID Cetirizine Tab [ZyrTEC Tab] 10 mg PO PC SUPPER Isosorbide Mononitrate [Imdur] 60 mg PO QAM Atorvastatin [Lipitor] 40 mg PO QOTHER DAY Clopidogrel [Plavix] 75 mg PO QAM Metoclopramide Liquid [Reglan Liquid] 10 mg PO ACHS - Follow Up or Referral - Forms/Instructions Instructions: Coronary Artery Disease (GEN), Left Heart Catheterization (DC), Heart Healthy Diet (GEN)
--- NOTE | 2017-08-28 08:40 | Anesthesia Post-Op ---
Anesthesia Post OP - Post Ansesthetic Evaluation Patient seen in post op: Yes Resp: within normal limits CV: within normal limits Mental: within normal limits Temp: within normal limits [id number]: within normal limits Nausea and Vomiting: within normal limits Pain: within normal limits
--- NOTE | 2017-08-28 08:42 | Gastrointestinal Progress Note ---
Assessment and Plan (1) Atypical chest pain Status: Acute Assessment and plan: This patient has had a workup done starting in 2014 for reflux and atypical chest pain. Based on esophageal manometry studies he does not have nutcracker esophagus. He did not evidence gross esophagitis either although that was back in 2014 when he was last checked. The patient remains on Protonix 40 mg twice daily which should be covering him almost completely for her acid reflux in any event. We will perform upper endoscopy again tomorrow and plan to clip a Kerns 48-hour pH monitoring device to the inside of his esophagus to monitor him for a period of 48 hours to see what kind of acid suppression he is getting with Protonix. If for some reason he had breakthrough on this level of acid suppression he might be a good candidate for Alli fundoplication. This circumstance is highly unusual. If the patient were to have bile acid reflux I think this would have been improved by the Reglan currently being used. Unfortunately was not able to afford the Dexilant and so we cannot use this as a second line agent to treat his underlying reflux. Risks of the above procedure were reviewed with the patient include but are not limited to: Bleeding, infection, perforation, cardiac and pulmonary compromise. 08/28/17--Findings at upper endoscopy were as follows: Successful placement of 48 hour Kerns pH monitor in the distal esophagus at 6 cm above the GE junction. Mild esophagitis, 2 cm hiatal hernia, mild linear gastritis noted as well. Widely patent Schatzki's ring noted in addition. The patient can be discharged at this time to follow-up with the monitor in another 48 hours to be turned into the GI suite. He is to continue his Protonix 40 mg twice daily during this test to see if he is getting's complete suppression. Current Visit: No (2) GERD (gastroesophageal reflux disease) Status: Chronic Assessment and plan: Note that this patient is back on his Protonix 40 mg twice daily which should be suppressing his acid level significantly. We will continue this medication through this hospitalization at least until we can perform the 48 hour Kerns pH monitoring study to see what sort of efficacy we are getting with the treatment. Again he may be a candidate for Alli fundoplication if he cannot be controlled with p.o. medications and has significant evidence of esophagitis and/or significant reflux discovered on the pH monitoring study. 08/28/17--Doing well status post treatment with Protonix, ready for discharge at this time to return again for monitor turn in at 48 hours on Saturday. Current Visit: No (3) Gastroparesis Status: Acute Assessment and plan: The patient is currently being treated with Reglan but does not seem to have any significant improvement. This was started about on the of this month which was only 6 days ago it may be that he does not been on the medication long enough to experience a major effect yet. On upper endoscopy will look and see if there is any evidence of retained food or fluid through the stomach. We may have to switch the patient to erythromycin but would like to avoid this given the propensity for that medication to produce arrhythmias. 08/28/17--No gross evidence of gastroparesis at this time. No retained food on Reglan. Suggest continue this medication. Current Visit: Yes (4) Gastritis Status: Chronic Assessment and plan: As mentioned above. We will repeat upper endoscopy tomorrow and examine for the state of the gastritis. Previously the biopsy for this was negative for Helicobacter pylori. 08/28/17--Patient has previously been biopsied for Helicobacter pylori, appearance of the stomach indicates that this may be present on today's exam, biopsies pending. Current Visit: No Qualifiers: Gastritis bleeding: without bleeding (5) Screening for colorectal cancer Status: Acute Assessment and plan: This can be arranged as an outpatient, whenever the patient wishes to pursue. Current Visit: Yes Gastroenterology - PN: Subj Interval history: Patient doing well today esophageal pain seems much better. Exam (Progress Note) - Constitutional Vitals: Period Temp Pulse Resp BP Sys/Seymour Pulse Ox Last 24 Hr 96.7 F-98.6 F 50-67 16-22 114-137/60-76 92-99 General appearance: no acute distress - Eye Eye exam: Present: EOMI - Respiratory Respiratory exam: Present: clear to auscultation bilaterally - Cardiovascular Cardiovascular exam: Present: regular rate and rhythm - GI/Abdominal GI/Abdominal exam: Present: normal bowel sounds, soft. Absent: distended, tenderness, rebound - Extremities Exam Extremities exam: Present: normal inspection - Neurological Exam Neurological exam: Present: alert, oriented X3 - Psychiatric Psychiatric exam: Present: normal affect, normal mood - Skin Skin exam: Present: warm Results - Labs CBC & BMP: 08/28/17 06:41 08/28/17 06:41 Specialty Discharge - Follow Up or Referrals
[2017-08-28] MEDS ORDERED: ONDANSETRON 4 MG/2 ML VIAL ONE (08:58)
[2017-08-28] MEDS: ONDANSETRON 4 MG/2 ML VIAL IV PRN ×2 (08:59→13:44)
[2017-08-28] MEDS ORDERED: ATORVASTATIN 80 MG TABLET PO SCH ×2 (09:00)
[2017-08-28] MEDS: METOCLOPRAMIDE 10 MG TABLET PO SCH ×3 (10:06→16:49)
[2017-08-28] MEDS: PANTOPRAZOLE 40 MG TABLET PO SCH (10:06)
--- NOTE | 2017-08-28 10:15 | Discharge Summary ---
<Leonarda Freire E - Last Filed: 08/28/17 14:38> Hospital Course - Hospital Course Hospital Course: Mr. Galo is admitted through the emergency room due to persistent chest pain concerning for cardiac etiology. He has known coronary disease and involving stents of his LAD and circumflex artery with total occlusion of his RCA. He underwent left heart catheterization which did not reveal any significant disease to account for symptoms. His stents were widely patent. Since his admission, his cardiac enzymes/biomarkers have remained nondetectable. His EKG has been unchanged. His pain is unlikely cardiac. GI has seen him in evaluation and he underwent placement of a 48 hour Stanton pH monitor. He was also felt to have some anxiety overload and was started on Tranxene. He was given 4 doses of IV Toradol to rule out musculoskeletal etiology which did not provide him with significant relief. He will continue with Tranxene as needed for which he will be given a hand written prescription. He had a chest CT today which was fairly unremarkable. At this time, he has met maximum benefit from hospitalization and will be discharged home in stable condition. He will follow up with GI in 1-2 weeks by phone for biopsy results. He will return to the clinic in 48 hours to drop off his monitor for evaluation of his ongoing reflux. He will continue anti- gastroesophageal reflux measures (avoid carbonated and ascitic beverages, avoid eating within 2 hours of bedtime, avoiding tightfitting clothing, and elevate the front bedpost 6 inches prior to sleeping.) He will need to continue his Protonix 40 mg p.o. twice daily. He will need to follow-up with Dr. Espinosa in 1- 2 weeks. We planned to discharge Mr. Galo home today to follow up as an outpatient with [facility]; however, he had persistent pain and Dr. Newton with pain treatment saw him today. It is felt as though he has costochondritis of the left chest wall. The patient has agreed to proceed with costochondral injection of the left chest wall. If he remains stable after his injection and is okay to go home from a pain treatment standpoint, he will be discharged home this afternoon. Patient personally reviewed and examined chart reviewed and discussed his case with Leonarda Freire NP. The patient is doing well is now post injections for costochondritis. He is already feeling better. Dr. Newton plans of seeing him back on a as needed basis. We will go ahead and discharge the patient he will follow-up with Francisca Cordova and Sobeida is already made. Prescriptions are being forwarded in taking care of. - Time spent with patient Time with patient DS: Greater than 30 minutes (due to lengthy patient discussion , assessment, plan, and documentation) Diagnosis - Discharge Diagnosis (1) Atypical chest pain Status: Acute (2) CAD (coronary artery disease) Status: Chronic (3) Anemia Status: Chronic (4) Dyslipidemia Status: Chronic (5) GERD (gastroesophageal reflux disease) Status: Chronic (6) Gastritis Status: Chronic Specialty Discharge - Follow Up or Referrals Follow up with: Arturo Newton MD [Physician] - 09/09/17 8:45 am Lela Rivas DO [Physician] - 09/04/17 10:00 am (Follow up in 1-[address] Rivas. ) Irvin Liu MD [Physician] - 10/09/17 9:00 am (Return to clinic in 48 hours to drop off monitor for evaluation of ongoing reflux. Follow up for biopsy results in 1-2 weeks by phone [phone] (call clinic). ) Discharge Plan - Discharge Data Disposition: Disch To Home/Self Care Condition at Discharge: Stable Discharge Diet: heart healthy Activity: no lifting (No lifting over 5 pounds 1 week.) Hygiene: may shower (Do not submerge cath site beneath water for 1 week.) Weight Bearing at Discharge: full weight bearing Driving: other (No driving for [address] while taking Tranxene.) Contact your physician if you experience:: fever over 101, Difficulty voiding, Redness or swelling, Nausea/Vomiting, Shortness of breath, Bleeding, pain uncontrolled by pain medications - Discharge Medications New Clorazepate [Tranxene] 3.75 mg PO Q6H PRN #0 tablet PRN Reason: Anxiety Continue Sertraline [Zoloft] 100 mg PO PC SUPPER Lisinopril 5 mg PO QAM Aspirin [Ecotrin] 81 mg PO QAM Metoprolol Tartrate Tab [Lopressor Tab] 12.5 mg PO BID #30 tablet Nitroglycerin Sl Tab [Nitrostat] 0.4 mg SL Q5M PRN #25 tablet PRN Reason: Chest Pain Pantoprazole Tab [Protonix Tab] 40 mg PO BID Cetirizine Tab [ZyrTEC Tab] 10 mg PO PC SUPPER Isosorbide Mononitrate [Imdur] 60 mg PO QAM Atorvastatin [Lipitor] 40 mg PO QOTHER DAY Clopidogrel [Plavix] 75 mg PO QAM Metoclopramide Liquid [Reglan Liquid] 10 mg PO ACHS - Follow Up or Referral Follow Up: Arturo Newton MD [Physician] - 09/09/17 8:45 am Lela Rivas DO [Physician] - 09/04/17 10:00 am (Follow up in 1-[address] Rivas. ) Irvin Liu MD [Physician] - 10/09/17 9:00 am (Return to clinic in 48 hours to drop off monitor for evaluation of ongoing reflux. Follow up for biopsy results in 1-2 weeks by phone [phone] (call clinic). ) - Forms/Instructions Instructions: Coronary Artery Disease (GEN), Left Heart Catheterization (DC), Heart Healthy Diet (GEN) Exam - Constitutional Vitals: Period Temp Pulse Resp BP Sys/Seymour Pulse Ox Last 24 Hr 96.7 F-98.7 F 50-73 15-22 112-137/61-77 91-99 Exam: General appearance: normal weight, no acute distress HEENT exam: normal inspection, atraumatic Neck exam: normal inspection no JVD. No carotid bruit. Trachea is in midline Respiratory/lungs exam: clear to auscultation bilaterally good air movement. Cardiovascular exam: regular rate and rhythm, no murmur or gallop or rub. No precordial lift. Chest wall exam: nontender GI/Abdominal exam: normal bowel sounds, soft, nontender, no abdominal bruits or pulsatile masses. Extremeties/musculoskeletal: normal inspection without edema or cyanosis. His right groin is stable with slight direct tenderness but there was no pulsatile mass or bruits noted. Neurological exam: alert, oriented X3, no focal deficits Psychiatric exam: normal affect, normal mood. Cognitive function is grossly normal. Skin exam: normal color, warm Discharge Results Procedures and tests throughout hospitalization: Date of procedure: 08/28/17 Pre-op diagnosis: Atypical chest pain, rule out refractory GERD with Stanton Post-op diagnosis: other (Successful placement of 48 hour Stanton pH monitor in the distal esophagus at 6 cm above the GE junction. Mild esophagitis, 2 cm hiatal hernia, mild linear gastritis noted as well. Widely patent Schatzki's ring noted in addition.) Procedure: PROCEDURE: Esophagogastroduodenoscopy (EGD) with cold biopsy for pathology and 48 hour stanton pH monitor placement IMPRESSION: Successful placement of 48 hour Stanton pH monitor in the distal esophagus at 6 cm above the GE junction. Mild esophagitis, 2 cm hiatal hernia, mild linear gastritis noted as well. Widely patent Schatzki's ring noted in addition. RECOMMENDATIONS: Follow up for biopsy results in 1-2 weeks by phone [phone] Continue anti-gastroesophageal reflux measures (avoid carbonated and acidic beverages, avoid eating within 2 hours of bedtime, avoid tight fitting clothing , and elevate the front bed posts 6 inches prior to sleeping. Return to clinic in 48 hours to drop off monitor for evaluation of ongoing reflux. Patient is instructed to continue his Protonix 40 mg twice daily to see if this is adequate. If ongoing reflux is documented we may have to have the patient undergo Alli fundoplication. Left heart catheterization 08/26/2017: Left ventricular angiogram: Left ventricle is normal size and systolic function ejection fraction of 60+% without segmental wall motion abnormalities. Left main coronary artery angiogram: Limited coronary is large luminal irregularities bifurcating LAD and circumflex arteries. No stenosis noted. Left anterior descending artery angiogram: The LAD is medium caliber to large caliber proximally. He has diffuse stents proximally in mid vessel as well as distally. First diagonal is small with 90% stenosis with at least WOODY II flow. This vessel was previously attempted for intervention but unable to be carried out secondary to stents crossing the ostium and small size vessel. The second diagonal is patent with 50% or less proximal ostial stenosis and with WOODY-3 flow. The LAD proper has WOODY-3 flow. The distal LAD at the apex is small and with at least 50-70% stenosis. Circumflex artery angiogram: Circumflex arteries a medium caliber vessel smaller than the LAD. First second and third obtuse marginal branches are very small. The fourth obtuse marginal branch has a mid takeoff and has a proximal stent present that is widely patent. Beyond this the circumflex artery continues giving rise to some small posterior ventricular branches. There are collaterals from the circumflex artery to the RCA. Should be noted that the proximal circumflex artery has less than 30% stenosis. The rest of the circumflex artery mid vessel has less than 30% stenosis. Fourth obtuse marginal branch with a widely patent stent has less than 50% stenosis present. Right coronary artery angiogram: RCA is not visualized by direct angiogram since it is known to have total occlusion proximally. There is visualization of some of the distal and mid RCA by way of left to right collaterals from the LAD and circumflex artery system. Right common femoral artery angiogram: Right comfort arteries widely patent with sheath inserting the cuff artery. Successful Angio-Seal hemostasis. Impression: 1. Left ventricle is normal size systolic function ejection fraction 60 +% . 2. LVEDP is upper limits of normal at 60 mmHg. 3. There is no mitral valve regurgitation significant study. 4. Aortic valve appears to be grossly a tricuspid structure without any gradient significance. 5. RCA is known to be totally occluded and is seen by way of left to right collaterals as described above. 6. Left main coronary artery with luminal irregularities otherwise widely patent. 7. Circumflex artery diffuse calcification and with less than 30% stenosis proximally mid vessel. Fourth obtuse marginal branch widely patent stent in less than 50% stenosis otherwise. 8. LAD with patent stents proximal, mid vessel and distally widely patent. First diagonal still with 90+% stenosis and small vessel. Second diagonal was less than 50% stenosis. 9. Right comfort arteries patent with successful Angio-Seal hemostasis. Discussion: We do not find disease to account for the patient hematology. Flow overall is as good or better than previously. It is unlikely the first diagonal lesion is causing the symptoms this is been there previously. The RCA is known to be totally occluded previously and is not an interventional candidate. We will treat the patient medically at this time will ask GI medicine to see the patient. Labs on day of discharge: Labs from last 24 hours 08/28/17 08/28/17 06:41 06:41 WBC 7.2 RBC 4.67 Hgb 15.3 D Hct 43.5 MCV 93.1 MCH 33 MCHC 35.2 RDW 11.8 Plt Count 196 MPV 10.1 Neut % (Auto) 64.6 Lymph % (Auto) 23.2 [place] % (Auto) 7.4 Eos % (Auto) 3.9 Baso % (Auto) 0.6 Neut # (Auto) 4.6 Lymph # (Auto) 1.7 [place] # (Auto) 0.5 Eos # (Auto) 0.3 Baso # (Auto) 0.0 Immature Gran % 0.3 Nucleated RBC % 0.0 Immature Gran # 0.02 Nucleated RBCs # 0.00 Immature Plt Fraction 0.0 Sodium 140 Potassium 4.6 Chloride 104 Carbon Dioxide 32 Anion Gap 8.6 BUN 23 H Creatinine 1.00 GFR Calculation 85 BUN/Creatinine Ratio 23.00 H Glucose 94 Calculated Osmolality 282.4 Calcium 9.2 Magnesium 2.4 DS: Provider Date of admission: 08/26/17 13:12 Primary care physician: Brenna Singer Attending physician on admission: Devante Knott MD Consults: 08/26/17 17:39 Consult to Cardiac Rehabilitation [CONS] Routine Reason for Cardiac Rehabilitation: Risk Factor Modification Other Consult Comment: Evaluate and recommend 08/26/17 17:44 Consult to Physician [CONS] Routine Comment: Noncardiac chest and abdominal pain followed by yo Consulting Provider: Irvin Liu Consulting Provider Notified: No When should Consulting Provider be notified: In am Consult to Specialist Group: Gastroenterology Person Notified: Precious Date Notified: 08/27/17 Time Notified: 07:35 08/27/17 13:33 Consult to Anesthesiology [CONS] Routine Consulting Provider: Reason for Anesthesiology: Pre-op Clearance 08/28/17 12:39 Consult to Physician [CONS] Routine Comment: Uncontrolled non-cardiac chest pain Consulting Provider: Arturo Newton When should Consulting Provider be notified: Now Consult to Specialist Group: Pain Management Discharging clinician: PADMINI Roth Expected date of discharge: 08/28/17 <Devante Knott - Last Filed: 08/28/17 16:43> Diagnosis - Discharge Diagnosis (1) Chest pain Status: Chronic (2) Coronary artery disease Status: Chronic (3) Dyslipidemia Status: Chronic (4) Anemia Status: Chronic (5) Atypical chest pain Status: Acute (6) GERD (gastroesophageal reflux disease) Status: Chronic (7) Gastritis Status: Chronic
--- NOTE | 2017-08-28 12:56 | Pain Management Consult Note ---
Assessment and Plan (1) Chest pain Problem details: Left chest wall pain 3 weeks Status: Chronic Assessment and plan: 08/28/2017. The patient is experiencing left-sided chest wall pain. Has been flared for the past 3 weeks. However he notes long-standing pain in this area for the past 2 years. The pain is a deep aching throbbing pain. It is reproducible on exam. The pain is worse with movement. This is all consistent with costochondritis left chest wall and he has costochondritis of the left chest wall. We discussed treatment including costochondral injection and he would like to proceed. Will be back in a few hours and perform the costochondral injection so that he might proceed eventually to discharge. y Current Visit: No Qualifiers: Chest pain type: unspecified Qualified Code(s): R07.9 - Chest pain, unspecified History of Present Illness Chief complaint: Left chest wall pain History of present illness: Mr. Galo is a 77 year old male with left-sided chest wall pain and chest pain that has been active for the past 3 weeks. He denies any injury. There is a throbbing deep aching pain worse with any movement or deep breathing. Home Medications Medication Instructions Recorded Confirmed Type Aspirin [Ecotrin] 81 mg PO QAM 10/02/15 08/26/17 History Lisinopril 5 mg PO QAM 10/02/15 08/26/17 History Sertraline [Zoloft] 100 mg PO PC SUPPER 10/02/15 08/26/17 History Metoprolol Tartrate Tab [Lopressor 12.5 mg PO BID #30 tablet 10/12/15 08/26/17 Rx Tab] Nitroglycerin Sl Tab [Nitrostat] 0.4 mg SL Q5M PRN #25 tablet 10/12/15 08/26/17 Rx Cetirizine Tab [ZyrTEC Tab] 10 mg PO PC SUPPER 03/03/16 08/26/17 History Pantoprazole Tab [Protonix Tab] 40 mg PO BID 03/03/16 08/26/17 History Isosorbide Mononitrate [Imdur] 60 mg PO QAM 07/17/16 08/26/17 History Atorvastatin [Lipitor] 40 mg PO QOTHER DAY 01/06/17 08/26/17 History Clopidogrel [Plavix] 75 mg PO QAM 03/10/17 08/26/17 History Metoclopramide Liquid [Reglan 10 mg PO ACHS 08/26/17 08/26/17 History Liquid] Clorazepate [Tranxene] 3.75 mg PO Q6H PRN #0 tablet 08/28/17 Rx Allergies Allergy/AdvReac Type Severity Reaction Status Date / Time No Known Allergies Allergy Verified 08/26/17 18:12 Medical,Surgical,& Family Hx - Medical History Cardio: History of: CAD, Hypertension, GA, Cardiovascular Problems No history of: Aneurysm, Cardiac Dysrhythmia, Cerebrovascular Disease, Congenital Heart Disease, CHF, Pacemaker, PVD, Valvular Heart Disease Psychological: History of: Depression Neurology: No history of: Brain Aneurysm, Cerebral Hemorrhage, Cerebrovascular Accident , Cerebral Palsy, Dementia, Migraine, Multiple Sclerosis, Parkinson's Disease, Peripheral Neuropathy, Seizures, TIA, Vertigo, Neurologocal Cancer HEENT: History of: Ear Problem (Hearing Aids), Eye Problem (Glasses), Dental Problems (Partial upper Dentures), HEENT Problems (vertigo) Endocrine: History of: Dyslipidemia No history of: Diabetes Mellitus (IDDM), Diabetes Mellitus (NIDDM), Thyroid Disorder Respiratory: No history of: Obstructive Sleep Apnea Genitourinary: History of: Kidney Stones Gastrointestinal: History of: GERD, GI Problems (Erosive esophagitis) Musculoskeletal: History of: Musculoskeletal Problems (arthritis) No history of: Amputation - Surgical History Cardiac Surgeries: Sugical HX of: Cardiac Catheterization (stents in 2017) Patient Denies: Femoral-Popliteal Bypass Graft, Cardiac Surgery, Carotid Endarterectomy, Internal Defibrillator, Vascular Access Devices Thoracic Surgeries: Patient denies;: Lobectomy Neurologic Surgeries: Patient denies: Brain Aneurysm, Cerebral Hemorrhage, Neurologic Surgery HEENT Surgeries: Patient denies: Carotid Endarterectomy, Eye Surgery, Thyroid Surgery, Tonsilectomy & Adenoidectomy Abdominal Surgeries: Surgical HX of: Abdominal Surgery, Cholecystectomy, Colonoscopy, EGD, Hernia Repair Patient denies: Appendectomy, Splenectomy Reproductive Surgeries: Patient denies;: Genitourinary Surgery Orthopedic Surgeries: Patient denies;: Implanted Devices, Orthopedic Surgery, Spinal Surgery, Total Hip Replacement, Total Knee Replacement - Family History Family History: Reports;: Family Cancer (BROTHERS AND SISTER), Family Diabetes ( MOTHER), Family Heart Disease (BROTHERS AND SISTER) - Social History Smoking Status: Former smoker Type of Drug Use: None Quality Measures - VTE Contraindication to Pharmacological VTE Prophylaxis: High Risk of Bleeding - Cardiovascular Cardiovascular: Present: chest pain with activity - Gastrointestinal Gastrointestinal: Present: abdominal pain Exam - Constitutional Vitals: Period Temp Pulse Resp BP Sys/Seymour Pulse Ox Last 24 Hr 96.7 F-98.6 F 50-73 15-22 114-137/60-77 91-99 General appearance: normal weight, mild distress - Respiratory Respiratory exam: Present: chest wall tenderness (Left side costochondral) - Cardiovascular Cardiovascular exam: Present: RRR - GI/Abdominal GI/Abdominal exam: Present: soft Results - Labs CBC & BMP: 08/28/17 06:41 08/28/17 06:41 Specialty Discharge - Follow Up or Referrals Follow up with: Arturo Newton MD [Physician] - 09/09/17 8:45 am Lela Rivas DO [Physician] - 09/04/17 10:00 am (Follow up in 1-[address] Rivas. ) Irvin Liu MD [Physician] - 10/09/17 9:00 am (Return to clinic in 48 hours to drop off monitor for evaluation of ongoing reflux. Follow up for biopsy results in 1-2 weeks by phone [phone] (call clinic). )
[2017-08-28] MEDS: MORPHINE 2 MG/1 ML SYRINGE IV PRN (13:48)
--- NOTE | 2017-08-28 13:51 | CT Report ---
Exam: CT chest with intravenous contrast Exam date: 08/28/2017 10:02 AM Clinical History: 77 years,Male, chest pain Technique: Axial computed tomography images of the chest with intravenous contrast. The CT exam was performed using one or more of the following dose reduction techniques: Automated exposure control, adjustment of the mA and/or kV according to patient size, or use of iterative reconstruction technique. Contrast: 100 mL of Omnipaque 350 administered intravenously. Comparison: July 18, 2016 Findings: Lungs: Minimal bibasilar fibrosis and bronchiectasis, unchanged. Pleural spaces: No pneumothorax. No significant effusion Heart: Dense plaquing along the coronary vessels Mediastinum: There is again prominence of the hilar and mediastinal soft tissues with no pathologically enlarged lymph nodes by strict CT criteria. There is somewhat linear metallic density within the mid esophagus of uncertain etiology. Correlate clinically with surgical history Bones/joints: Intact. No acute fracture. No dislocation. Soft tissues: Unremarkable Vasculature: Mild atheromatous changes Upper abdomen: Suspect left renal pelvic stone. Granulomatous changes within the liver and spleen. Prior cholecystectomy Impression: 1. Linear metallic density within the midesophagus, unclear if findings represent postsurgical changes and/or ingested foreign body 2. Mild bibasilar fibrosis with distal bronchiectasis, stable in the interim. 3. Prominent mediastinal soft tissues that do not meet strict CT criteria for pathologic enlargement, likely reactive 4. Peripheral and coronary atheromatous changes PROCEDURE INTERPRETED AT [facility] DEPARTMENT OF RADIOLOGY Final Report Signed by: Sarika Alvarado MD
[2017-08-28] MEDS ORDERED: ROPIVACAINE 0.5% 30 ML VIAL NERVEBLOCK ONE (14:00)
[2017-08-28] MEDS ORDERED: TRIAMCINOLONE ACETONIDE 40 MG/1 ML VIAL MISC INJ ONE (14:02)
--- NOTE | 2017-08-28 16:27 | Operative Note ---
Date of procedure: 08/28/17 Pre-op diagnosis: Costochondritis Post-op diagnosis: same Procedure: Preoperative diagnosis: #1 costochondritis, #2 chest wall pain Postoperative diagnosis: Same Procedure: Costochondral block on the left levels T4, T5, T6. Anesthesia: Local Consultations: None Findings: The patient tolerated procedure well with significant pain relief History of present illness: The patient is very pleasant 77-year-old male with left-sided chest wall pain. Cardiac and GI sources for the most part been ruled out. He has localized tenderness over the costochondral junction in the mid left costochondral joints. I am optimistic that he will be able to go home later today or first in the morning after today's procedure. Nothing from the procedure should keep him in the hospital. Procedure note: The risks benefits and indications of the procedure were explained to the patient including the option do nothing at all, he understood these and wished to proceed. The patient was placed in the supine position and left chest wall was prepped with alcohol allowed to air dry. He is a 25-gauge 1 /2 inch needle this is inserted through the skin into the area of the costochondral junction at T4, T5, and T6 on the left. Once in appropriate position I injected 3 cc of 0.5% ropivacaine +5 mg of Kenalog for location. He tolerated the procedure well with excellent pain relief. Anesthesia: local Surgeon / Physician: Arturo Newton Estimated blood loss: none Specimens: none sent Condition: stable Disposition: floor Results - Labs CBC & BMP: 08/28/17 06:41 08/28/17 06:41 Discharge Plan - Discharge Data Disposition: Disch To Home/Self Care Condition at Discharge: Stable - Discharge Medications New Clorazepate [Tranxene] 3.75 mg PO Q6H PRN #0 tablet PRN Reason: Anxiety Continue Sertraline [Zoloft] 100 mg PO PC SUPPER Lisinopril 5 mg PO QAM Aspirin [Ecotrin] 81 mg PO QAM Metoprolol Tartrate Tab [Lopressor Tab] 12.5 mg PO BID #30 tablet Nitroglycerin Sl Tab [Nitrostat] 0.4 mg SL Q5M PRN #25 tablet PRN Reason: Chest Pain Pantoprazole Tab [Protonix Tab] 40 mg PO BID Cetirizine Tab [ZyrTEC Tab] 10 mg PO PC SUPPER Isosorbide Mononitrate [Imdur] 60 mg PO QAM Atorvastatin [Lipitor] 40 mg PO QOTHER DAY Clopidogrel [Plavix] 75 mg PO QAM Metoclopramide Liquid [Reglan Liquid] 10 mg PO ACHS - Follow Up or Referral Follow Up: Arturo Newton MD [Physician] - 09/09/17 8:45 am Lela Rivas DO [Physician] - 09/04/17 10:00 am (Follow up in 1-[address] Rivas. ) Irvin Liu MD [Physician] - 10/09/17 9:00 am (Return to clinic in 48 hours to drop off monitor for evaluation of ongoing reflux. Follow up for biopsy results in 1-2 weeks by phone [phone] (call clinic). ) - Forms/Instructions Instructions: Coronary Artery Disease (GEN), Left Heart Catheterization (DC), Heart Healthy Diet (GEN)
[2017-08-28 16:31] VITALS: BP 112/66
--- NOTE | 2017-08-28 16:37 | Event Note ---
The patient continues to have some chest pain is noncardiac and probably not GI. We have asked pain clinic to see the patient before discharge. Dr. Newton is seen him is evaluating him with awaiting him to complete her evaluation and plan. After they have seen in completed this we will move on to discharge. I have seen the patient as well as examine him. As noted am awaiting pain clinics recommendations and plans for follow-up.
--- NOTE | 2017-08-29 18:20 | Pathology Report from [facility] ---
[facility] ACCESSION # : [id number] PATIENT NAME : Griffin Galo ORDERING DR : Irvin Liu MD CLINICAL HX: Atypical CP POST-OP DX: R/O Esophagitis SPECIMEN INFO: #1 CARLOS MANUEL #2 Distal esophagus GROSS DESCRIPTION: #1 Received in formalin labeled with the patients name GRIFFIN GALO and #1 consists of an aggregate of pink-vega mucosal tissue measuring collectively 0.8 x 0.4 cm. Submitted in cassette #1.#2 Received in formalin labeled with the patients name GRIFFIN GALO and #2 consists of multiple fragments of key-white mucosal tissue collectively measuring 0.8 x 0.3 cm. Submitted in cassette #2. DIAGNOSIS FOR GRIFFIN GALO: #1 GASTRIC, BIOPSY: Mild superficial chronic gastritis. No H. pylori seen on H&E or special stain with appropriate control.# 2 DISTAL ESOPHAGUS BIOPSY: Benign squamous mucosa with adjacent gastric mucosa. No specialized columnar epithelium of Barretts mucosa or significant inflammation seen. No H. pylori seen on H&E or special stain with appropriate control. COLLECTED DATE: 08/28/2017 [facility] REPORT DATE: 08/29/2017 ELECTRONICALLY SIGNED BY: Laura Naylor M.D. 08/29/2017 - 14:38:28 [facility]
--- NOTE | 2017-09-02 16:10 | Operative Note ---
Date of procedure: 08/28/17 Pre-op diagnosis: 48 hour [facility] pH monitoring study for symptom breakthrough Post-op diagnosis: other (This patient has very minimal breakthrough of acid with a total of about 19 minutes spent with reflux over a period of 48 hours and a normal Nico DeMeester score (9.9) with no correlation of these acidity reflux episodes and his chest pain on diary. He will not benefit from a Alli fundoplication, his acid reflux is complete. Galvez mind that these results were probably taken under optimal conditions.) Procedure: Date of procedure: 08/28/17 Procedure: [facility] 48-hour pH monitoring study Physician: Irvin Liu MD Referring provider: Devante Knott MD Indications: Griffin has a history of atypical chest pain and multiple cardiac catheterizations who has been noted to have gastroparesis in the past and is on Reglan as well as pantoprazole 40 mg twice daily. Please see my consultation this admission for full details. Findings: Total procedure analysis time: 48 hours Acid exposure time upright and supine: 46 minutes/20 minutes Number of reflux episodes: 3, all while upright Longest reflux episode in minutes: 18.5 minutes upright with 4.8 minutes supine. Percentage of acid exposure time 2.9% upright and 1.8% supine Nico DeMeester* score: 9.9 The Nico DeMeester score correlates with reflux if this is greater than 14.72 Impression: This patient has very minimal breakthrough of acid with a total of about 19 minutes spent with reflux over a period of 48 hours and a normal Nico DeMeester score (9.9) with no correlation of these acidity reflux episodes and his chest pain on diary. He will not benefit from a Alli fundoplication, his acid reflux is complete. Galvez mind that these results were probably taken under optimal conditions. Plan: Continue pantoprazole 40 mg prior to breakfast and supper, continue Reglan 5-10 mg q. before meals and nightly. No Alli fundoplication is required, reassurance. Patient may wish to be treated more aggressively for his anxiety component. Anesthesia: none Surgeon / Physician: Irvin Liu Estimated blood loss: minimal Specimens: none sent Condition: stable Disposition: post procedure unit Results - Labs CBC & BMP: 08/28/17 06:41 08/28/17 06:41 Discharge Plan - Discharge Data Disposition: Disch To Home/Self Care - Discharge Medications New Clorazepate [Tranxene] 3.75 mg PO Q6H PRN #0 tablet PRN Reason: Anxiety Continue Sertraline [Zoloft] 100 mg PO PC SUPPER Lisinopril 5 mg PO QAM Aspirin [Ecotrin] 81 mg PO QAM Metoprolol Tartrate Tab [Lopressor Tab] 12.5 mg PO BID #30 tablet Nitroglycerin Sl Tab [Nitrostat] 0.4 mg SL Q5M PRN #25 tablet PRN Reason: Chest Pain Pantoprazole Tab [Protonix Tab] 40 mg PO BID Cetirizine Tab [ZyrTEC Tab] 10 mg PO PC SUPPER Isosorbide Mononitrate [Imdur] 60 mg PO QAM Atorvastatin [Lipitor] 40 mg PO QOTHER DAY Clopidogrel [Plavix] 75 mg PO QAM Metoclopramide Liquid [Reglan Liquid] 10 mg PO ACHS - Follow Up or Referral Follow Up: Arturo Newton MD [Physician] - 09/09/17 8:45 am Lela Rivas DO [Physician] - 09/04/17 10:00 am (Follow up in 1-[address] Rivas. ) Irvin Liu MD [Physician] - 10/09/17 9:00 am (Return to clinic in 48 hours to drop off monitor for evaluation of ongoing reflux. Follow up for biopsy results in 1-2 weeks by phone [phone] (call clinic). ) - Forms/Instructions Instructions: Coronary Artery Disease (GEN), Left Heart Catheterization (DC), Heart Healthy Diet (GEN)
== END 2017-08-28 17:16 | disposition home or self-care (01) ==
LOC: N.ED 10:53 → N.EDINP 10:53 → N.TELES 15:33
PROVIDERS: ADMIT Internal Medicine Cardiovascular Disease; ATTEND Internal Medicine Cardiovascular Disease
PROC: CLCCHCL (ICD-10-PCS; 2017-08-26 16:15)

== ENCOUNTER 2018-07-19 10:19 | Observation (INO) ==
[2018-07-19 11:06] LABS: Basophils % 0.4 % (0.0-0.8); Eosinophils # 0.2 10*3/uL (0.0-0.87); Eosinophils % 2.4 % (0.00-10.9); Hematocrit 40.2 VOL% (42.0-52.0); Hemoglobin 13.7 GM/DL (14.0-18.0); Immature Granulocytes % 0.4 %; Immature Granulocytes Absolute 0.03 #; Lymphocytes # 1.5 10*3/uL (1.4-4.0); Lymphocytes % 18.5 % (21.2-54.2); Mean Corpuscular HGB Conc 34.1 GM/DL (32-36); Mean Corpuscular Hemoglobin 32 PG (27-34); Mean Corpuscular Volume 94.4 FL (87-102); Mean Platelet Volume 9.8 FL (9.6-12.0); Monocytes # 0.6 10*3/uL (0.11-0.8); Monocytes % 7.7 % (1.7-12.7); Neutrophils # 5.6 10*3/uL (1.4-7.4); Neutrophils % 70.6 % (38.7-73.9); Platelet Count 195 T/CUMM (130-400); Red Blood Count 4.26 MC/CUMM (3.8-5.5); Red Cell Distribution Width 12.3 % (9.3-17.3)
[2018-07-19 11:33] LABS: Osmolality,Calculated 281.3 MOS/KG (273-304); Potassium 4.4 MMOL/L (3.5-5.1)
[2018-07-19] MEDS ORDERED: ONDANSETRON 4 MG/2 ML VIAL ONE (12:01)
[2018-07-19] MEDS ORDERED: NITROGLYCERIN SL 0.4 MG TABLET SL ONE (12:02)
[2018-07-19] MEDS ORDERED: ONDANSETRON 4 MG/2 ML VIAL IV STA (12:34)
[2018-07-19] MEDS ORDERED: NITROGLYCERIN SL 0.4 MG TABLET SL STA (12:34)
[2018-07-19] MEDS ORDERED: MAGNESIUM SULF RIDER 2 GM in PREMIX 1 EACH IV PRN (14:03)
[2018-07-19] MEDS ORDERED: MAGNESIUM SULF RIDER 4 GM in PREMIX 1 EACH IV PRN (14:03)
[2018-07-19] MEDS ORDERED: NITROGLYCERIN SL 0.4 MG TABLET SL PRN ×2 (14:06→14:07)
[2018-07-19] MEDS ORDERED: ALUM/MAG/SIMETH/LIDO VISC 1:1 30 ML BOTTLE PO ONE (15:23)
[2018-07-19] MEDS: ENOXAPARIN 40 MG/0.4 ML SYRINGE SUBCUT SCH (15:25)
[2018-07-19] MEDS ORDERED: ALUM/MAG/SIMETH/LIDO VISC 1:1 30 ML BOTTLE PO STA (15:27)
[2018-07-19] MEDS: SUCRALFATE 1 GM/10 ML UDCUP PO SCH ×2 (17:19→21:02)
[2018-07-19] MEDS: CETIRIZINE 10 MG TABLET PO SCH (17:19)
[2018-07-19] MEDS: SERTRALINE 100 MG TABLET PO SCH (17:19)
[2018-07-19] MEDS: METOPROLOL TARTRATE 25 MG TABLET PO SCH (21:01)
[2018-07-19] MEDS: PANTOPRAZOLE 40 MG TABLET PO SCH (21:01)
[2018-07-19] MEDS ORDERED: MORPHINE 4 MG/1 ML VIAL ONE (22:02)
[2018-07-19] MEDS ORDERED: ENOXAPARIN 100 MG/ML SYRINGE SUBCUT ONE (22:16)
[2018-07-19] MEDS ORDERED: KETOROLAC 30 MG/1 ML VIAL IV ONE (22:30)
[2018-07-19] MEDS: ONDANSETRON 4 MG/2 ML VIAL IV PRN (22:35)
[2018-07-19] MEDS: MORPHINE 4 MG/1 ML VIAL IV PRN (23:01)
[2018-07-20] MEDS: MORPHINE 4 MG/1 ML VIAL IV PRN (03:24)
[2018-07-20] MEDS: ONDANSETRON 4 MG/2 ML VIAL IV PRN (03:35)
[2018-07-20] MEDS: SUCRALFATE 1 GM/10 ML UDCUP PO SCH ×4 (08:51→21:24)
[2018-07-20] MEDS: PANTOPRAZOLE 40 MG TABLET PO SCH ×2 (08:51→21:24)
[2018-07-20] MEDS: CLOPIDOGREL 75 MG TABLET PO SCH (08:51)
[2018-07-20] MEDS: ISOSORBIDE MONONITRATE 60 MG TABLET PO SCH (08:51)
[2018-07-20] MEDS: LISINOPRIL 5 MG TABLET PO SCH (08:52)
[2018-07-20] MEDS: ASPIRIN EC 81 MG TABLET PO SCH (08:52)
[2018-07-20] MEDS: METOPROLOL TARTRATE 25 MG TABLET PO SCH ×2 (08:54→21:24)
[2018-07-20] MEDS: DICLOFENAC 1% GEL 100 GM TUBE TOP SCH ×2 (15:21→21:27)
[2018-07-20] MEDS: ENOXAPARIN 40 MG/0.4 ML SYRINGE SUBCUT SCH (15:21)
[2018-07-20] MEDS: CETIRIZINE 10 MG TABLET PO SCH (17:00)
[2018-07-20] MEDS: SERTRALINE 100 MG TABLET PO SCH (17:00)
[2018-07-21] MEDS ORDERED: ATORVASTATIN 40 MG TABLET PO SCH (09:00)
[2018-07-21] MEDS: SUCRALFATE 1 GM/10 ML UDCUP PO SCH ×4 (14:02→21:43)
[2018-07-21] MEDS: ASPIRIN EC 81 MG TABLET PO SCH (14:03)
[2018-07-21] MEDS: ISOSORBIDE MONONITRATE 60 MG TABLET PO SCH (14:03)
[2018-07-21] MEDS: CLOPIDOGREL 75 MG TABLET PO SCH (14:04)
[2018-07-21] MEDS: LISINOPRIL 5 MG TABLET PO SCH (14:04)
[2018-07-21] MEDS: PANTOPRAZOLE 40 MG TABLET PO SCH ×2 (14:05→21:42)
[2018-07-21] MEDS: METOPROLOL TARTRATE 25 MG TABLET PO SCH ×2 (14:09→21:42)
[2018-07-21] MEDS: DICLOFENAC 1% GEL 100 GM TUBE TOP SCH ×3 (14:16→21:43)
[2018-07-21] MEDS: CETIRIZINE 10 MG TABLET PO SCH (18:08)
[2018-07-21] MEDS: SERTRALINE 100 MG TABLET PO SCH (18:08)
[2018-07-21] MEDS: ONDANSETRON 4 MG/2 ML VIAL IV PRN (21:46)
[2018-07-22 03:05] LABS: Basophils # 0.1 10*3/uL (0.0-0.2); Basophils % 0.7 % (0.0-0.8); Eosinophils # 0.5 10*3/uL (0.0-0.87); Eosinophils % 5.1 % (0.00-10.9); Hemoglobin 13.2 GM/DL (14.0-18.0); Immature Granulocytes % 0.3 %; Immature Granulocytes Absolute 0.03 #; Lymphocytes # 1.9 10*3/uL (1.4-4.0); Lymphocytes % 21.3 % (21.2-54.2); Mean Corpuscular HGB Conc 33.8 GM/DL (32-36); Mean Corpuscular Hemoglobin 32 PG (27-34); Mean Corpuscular Volume 94.7 FL (87-102); Monocytes # 0.8 10*3/uL (0.11-0.8); Monocytes % 8.6 % (1.7-12.7); Neutrophils # 5.6 10*3/uL (1.4-7.4); Platelet Count 193 T/CUMM (130-400); Red Blood Count 4.12 MC/CUMM (3.8-5.5); Red Cell Distribution Width 12.2 % (9.3-17.3); White Blood Count 8.8 T/CUMM (4-12)
[2018-07-22 03:31] LABS: Osmolality,Calculated 284.3 MOS/KG (273-304); Potassium 3.9 MMOL/L (3.5-5.1)
[2018-07-22] MEDS ORDERED: LORazepam 2 MG/1 ML VIAL IV ONE (07:13)
[2018-07-22 07:55] VITALS: BP 117/70
[2018-07-22] MEDS: SUCRALFATE 1 GM/10 ML UDCUP PO SCH ×2 (09:35→14:20)
[2018-07-22] MEDS: ASPIRIN EC 81 MG TABLET PO SCH (14:18)
[2018-07-22] MEDS: PANTOPRAZOLE 40 MG TABLET PO SCH (14:19)
[2018-07-22] MEDS: METOPROLOL TARTRATE 25 MG TABLET PO SCH (14:19)
[2018-07-22] MEDS: LISINOPRIL 5 MG TABLET PO SCH (14:19)
[2018-07-22] MEDS: DICLOFENAC 1% GEL 100 GM TUBE TOP SCH (14:19)
[2018-07-22] MEDS: ISOSORBIDE MONONITRATE 60 MG TABLET PO SCH (14:19)
== END 2018-07-22 15:37 | disposition home or self-care (01) ==
LOC: N.ED 10:19 → N.EDINP 10:19 → N.TELEN 16:40 → N.EDINP 16:40
PROVIDERS: ADMIT Internal Medicine Cardiovascular Disease; ATTEND Internal Medicine Cardiovascular Disease